=== PATIENT | male | born 1950 | race African-American/Black ===

== ENCOUNTER 2019-04-19 16:09 | Inpatient (IN) | payer MEDICARE, MEDICAID ==
[2019-04-19 17:32] LABS: #Eosinphils 0.1 thou/uL (0.0-0.7); #Lymphocytes 2.5 thou/uL (1.20-3.40); #Monocytes 1.5 thou/uL (0.11-0.59); #Neutrophils 7.5 thou/uL (1.40-6.50); %Basophils 0.4 % (0.0-1.0); %Eosinophils 1.2 % (0.0-10.0); %Lymphocytes 21.1 % (21.0-51.0); %Neutrophils 64.3 % (42.0-75.0); Hemoglobin 13.6 g/dL (14.0-18.0); Mean Corpuscular HGB CONC 32.3 g/dL (32.0-36.0); Mean Corpuscular Hemoglobin 32.3 pg (27.0-31.0); Mean Platelet Volume 7.6 fL (7.4-10.4); Platelet Count 257 thou/uL (130-400); RBC Distribution Width 15.4 % (11.5-14.5); White Blood Cell (WBC) Count 11.6 thou/uL (4.8-10.8)
[2019-04-19 18:00] LABS: ALT (SGPT) 55 U/L (8-55); AST (SGOT) 102 U/L (5-34); Albumin 3.6 g/dL (3.4-4.8); Alkaline Phosphatase 161 U/L (40-110); Anion Gap 15 mmol/L (10-20); BUN (Urea Nitrogen) 5 mg/dL (8.4-25.7); Bilirubin, Total 0.7 mg/dL (0.2-1.2); CK (CPK) 236 U/L (30-200); Calc. Creatinine Clearance 0 mL/min (70-130); Calcium 8.8 mg/dL (7.8-10.44); Carbon Dioxide 33 mmol/L (23-31); Chloride 98 mmol/L (98-107); Estimated GFR-MDRD Greater than 90; Glucose 130 mg/dL (83-110); Protein, Total 6.6 g/dL (5.8-8.1); Sodium 143 mmol/L (136-145)
--- NOTE | 2019-04-19 18:17 | CT ---
CT Brain WO Con History: Left-sided weakness Comparison: None. Findings: No acute hemorrhage or infarct. No midline shift or mass effect. Mild atrophy with ex vacuo dilatation of the extra-axial CSF spaces and ventricles. The calvarium is intact. Paranasal sinuses and mastoids are clear. Impression: No acute intracranial abnormality. Moderate chronic microvascular ischemic changes.
[2019-04-19 18:51] LABS: Bilirubin Negative (Negative); Blood, Urine Trace (Negative); Clarity Turbid (Clear); Glucose, Urine (Dipstick) Normal (Negative); Leukocyte 500 Leu/uL (Negative); Nitrite Negative (Negative); Protein, Urine (Dipstick) 70 mg/dL (Neg-Trace); Squamous Epithelial 0-3 HPF (0-3); Urobilinogen Normal mg/dL (Less than 2); WBC/HPF Greater than 50 HPF (0-3)
[2019-04-19 18:53] LABS: Bacteria/HPF 1+ HPF (None Seen)
[2019-04-19] MEDS ORDERED: Aspirin 325 MG TAB ONE (18:58)
[2019-04-19] MEDS ORDERED: Potassium Chloride 20 MEQ TAB ONE (18:58)
[2019-04-19] MEDS ORDERED: hydrALAZINE 20 MG/ML VIAL SLOW IVP PRN (19:05)
--- NOTE | 2019-04-19 22:05 | HP ---
CHIEF COMPLAINT: Left upper extremity weakness and left lower extremity weakness. HISTORY OF PRESENT ILLNESS: The patient is a 69-year-old male with unknown past medical history, who presents to the hospital for left upper extremity weakness and left lower extremity weakness. According to the patient and per ER, the patient's family brought him into the hospital. The patient is not a very good historian. He is just using foul language when you keep asking him questions. The patient did state that he recently was at [facility] in [place] and had a workup for stroke and was then discharged. I am not exactly sure what testing they did. The patient states that he does not take any medications. He states that he did have a stroke about 10 years ago. The patient states that normally he is able to walk, however, for the past 2 to 3 weeks, he has been unable to walk and has been kind of on the floor crawling around. He has not been able to go to the bathroom, so he has been having bowel incontinence in his pants. Denies any fevers or chills. PAST MEDICAL HISTORY: He has had a history of stroke in the past. PAST SURGICAL HISTORY: No surgical history listed. The patient does not recall. SOCIAL HISTORY: He smokes about half a pack a day and he also drinks alcohol, unknown how much, does not do any drugs and unknown code status. It is really difficult to communicate with this patient. REVIEW OF SYSTEMS: All negative except for the ones mentioned above in the HPI. ALLERGIES: NO KNOWN DRUG ALLERGIES. MEDICATIONS: He takes none. FAMILY HISTORY: The patient does not recall any family history of any heart disease or strokes. PHYSICAL EXAMINATION: VITAL SIGNS: Temperature of 98.0, oxygenation of 96%, heart rate of 98, blood pressure 135/76, . GENERAL: He is awake, alert, and oriented x3. Does not appear in any distress. HEENT: Normocephalic, atraumatic. No lymphadenopathy noted. The patient is very unkept. CV: S1 and S2 present. No murmurs, rubs, or gallops. Sinus. LUNGS: Clear to auscultation. No rhonchi or wheezes noted. ABDOMEN: He has a large abdominal hernia. Bowel sounds are present x2. No pain upon palpation. EXTREMITIES: He does have decreased movement to his left upper extremity. He is unable to lift his left arm up. Left lower extremity, he is able to lift the left lower extremity. His right, he is able to move his right upper and right lower. NEUROLOGIC: Cranial nerves are intact. However, he does appear to have some slurred speech. LABORATORY RESULTS: As of the following; WBCs of 11.6, hemoglobin of 13.6, hematocrit of 42.1, platelets of 257. Chemistry; sodium of 143, potassium of 3.0, BUN of five, creatinine 0.84, alkaline phosphatase is 161. CK is 236. Troponin x1 is negative. His urine appears to have some leukocyte esterase and wbc's. IMAGING DATA: He did have a CT head, which was negative. He did have a chest x-ray in the ER and it does not show any acute abnormalities. However, there is some haziness on his left lower lung area. ASSESSMENT AND PLAN: The patient is a 69-year-old male, who presents to the hospital with weakness to his left upper extremity and left lower extremity. 1. Weakness to the left upper and left lower extremity, possible stroke versus radiculopathy. I will get records from [facility] since the patient states that he recently was there last week and was discharged on Sunday and he said he had multiple testing done. I am not exactly sure what he got tested for. He does have a history of a stroke and he stated that in the past, he has had right-sided weakness from the stroke. I will get an MRI of the brain, however, I will hold off on the echocardiogram. Also, if the stroke has been out for 2 or 3 weeks, his CT would have shown something, however, the CT is negative. If there is no stroke on the MRI, we will go ahead and get a cervical spine CT or MRI for further evaluation of his left upper extremity weakness. We will also get Physical Therapy and get Neurology to see this patient. I will start him on aspirin and a statin and go from there. 2. Hypertension. The patient has been having high blood pressure for the past 2 to 3 weeks. I believe, it is safe to start him on some antihypertensives. I will also check a hemoglobin A1c and check a lipid panel in the morning. 3. Abdominal hernia, nothing to do. The patient had a bowel movement and he is able to eat without any problems. 4. Possible urinary tract infection. His urine does look appear having a wbc's and having bacteria. I will start him on prophylactic ceftriaxone and continue to monitor. 5. Hypokalemia. We will start the patient on supplements for potassium. 6. Deep venous thrombosis prophylaxis. I will put the patient on SCDs and Lovenox. Job ID: [id number]
[2019-04-20 02:39] VITALS: BMI 38.2
[2019-04-20] MEDS: cefTRIAXone\\ROCEPHIN 1 GM in Sodium Chloride 0.9% 100 ML IVPB SCH ×2 (03:13→22:45)
[2019-04-20] MEDS: Metoprolol Tartrate 25 MG TAB PO SCH ×3 (03:31→22:46)
[2019-04-20] MEDS: Atorvastatin Calcium 40 MG TAB PO SCH ×2 (03:31→22:46)
[2019-04-20 05:09] LABS: Hemoglobin A1c 6.4 % (4.0-6.0)
[2019-04-20 05:29] LABS: Cardiac Risk 3.1 (Less than 4.5)
[2019-04-20] MEDS ORDERED: Prevnar 13-Val Conj/PF 0.5 ML SYRINGE IM ONE (09:00)
[2019-04-20] MEDS ORDERED: FLU VACC TS2019-20(65YR UP)/PF 180 MCG/0.5 ML SYRINGE IM ONE (09:00)
[2019-04-20] MEDS: Aspirin 81 mg Enteric Coated Tablet PO SCH (09:00)
[2019-04-20] MEDS: Enoxaparin Sodium 40 MG/0.4 ML SYRINGE SC SCH (09:00)
--- NOTE | 2019-04-20 09:55 | MRI ---
MRI brain without contrast: 04/20/2019 COMPARISON: None HISTORY: Left upper extremity weakness TECHNIQUE: Multiplanar multisequence MR imaging of the brain without contrast FINDINGS: The diffusion weighted imaging demonstrates no evidence for acute infarction and the axial gradient echo imaging demonstrates no evidence for intracranial hemorrhage. Mild periventricular FLAIR and T2 hyperintensity suggests mild small vessel disease. Arterial flow vo ids at axial level of skull base unremarkable on the T2-weighted imaging. Imaged paranasal sinuses/mastoid air cells grossly unremarkable. Regional bone marrow signal intensity appears within normal limits. IMPRESSION: No evidence for acute infarction.
--- NOTE | 2019-04-20 10:18 | CON ---
DATE OF CONSULTATION: 04/20/2019 CONSULTING PHYSICIAN: Hospitalist Service. IMPRESSION: 1. Possible right subcortical infarct with secondary left-sided weakness. 2. Hypertension. 3. Mild diabetes. PLAN: 1. Continue aspirin and a statin. 2. Control blood pressure. 3. Carotid ultrasound. HISTORY OF PRESENT ILLNESS: Mr. Piper is a 69-year-old man with no significant past history by his report, he reportedly developed some left-sided weakness two or 3 weeks ago. He was seen at [facility] and discharged home. He reports that he did have an MRI scan and echocardiogram. He is unaware of the results. He came into the emergency room yesterday with the same complaints. Initial CT did not show anything remarkable. He had an MRI done this morning, which I reviewed and awaiting Radiology report. There was a suspicious area on diffusion imaging in the right frontal lobe. He has some periventricular white matter changes that appear chronic. He has been started on aspirin and a statin. PAST MEDICAL HISTORY: Otherwise negative. ALLERGIES: NONE. SOCIAL HISTORY: No tobacco or alcohol use. FAMILY HISTORY: Noncontributory. REVIEW OF SYSTEMS: A Ten-system review of systems is otherwise negative. PHYSICAL EXAMINATION: VITAL SIGNS: Blood pressure was 176/102, pulse 97, respirations are 14, and temperature 99.4. HEENT: Pupils are equal. Conjunctivae clear. Oropharynx clear. Cranium, normocephalic and atraumatic. NECK: Supple. No lymphadenopathy. EXTREMITIES: No cyanosis or edema. NEUROLOGIC: He is alert and cooperative. His speech is fluent, though he tends to mumble and makes it difficult to understand. Cranial nerves appear to be intact. Motor exam showed no antigravity strength proximally in the left arm. He had a fairly good collector of port strength distally. He had antigravity strength in the left leg with really minimal weakness noted. Sensation was intact to touch. No tremor or other abnormal movements were seen. Gait was not tested. LABORATORY STUDIES: Unremarkable CBC and chemistry other than A1c of 6.4. His cholesterol ratio was 3.1. MRI was reviewed. SUMMARY: A 69-year-old man with hypertension and borderline diabetes, who presents with left-sided weakness, which appears consistent with a stroke. I agree with your current management. We will await physical therapy's assessment and determine whether inpatient treatment is needed. I would go ahead and finish his workup with a carotid ultrasound. Job ID: [id number]
--- NOTE | 2019-04-20 15:44 | PDOC.HOSPP ---
- Subjective Encounter Date: 04/20/19 Encounter Time: 15:30 Subjective: pt up in bed not cooperative - Objective Vital Signs & Weight: Vital Signs (12 hours) Temp Pulse Resp BP Pulse Ox 04/20/19 15:37 98.1 F 90 18 165/91 H 94 L 04/20/19 14:30 18 162/87 H 04/20/19 11:45 98.6 F 85 18 185/91 H 92 L 04/20/19 08:00 93 L 04/20/19 07:57 98.0 F 100 18 127/90 92 L 04/20/19 04:00 99.5 F 99 14 168/94 H 92 L Weight Weight 216 lb 3.2 oz I&O: 04/19/19 04/20/19 04/21/19 06:59 06:59 06:59 Intake Total 360 Output Total 200 Balance -200 360 Result Diagrams: 04/19/19 17:23 04/19/19 17:23 Hospitalist ROS - Review of Systems Cardiovascular: denies: chest pain, palpitations, orthopnea, paroxysmal noc. dyspnea, edema, light headedness, other Gastrointestinal: denies: nausea, vomiting, abdominal pain, diarrhea, constipation, melena, hematochezia, other - Medication Medications: Active Medications Generic Name Dose Route Start Last Admin Trade Name Molina PRN Reason Stop Dose Admin Aspirin 81 mg 04/20/19 09:00 04/20/19 09:00 Ecotrin PO 81 mg DAILY HAIR Administration Atorvastatin Calcium 40 mg 04/19/19 21:00 04/20/19 03:31 Lipitor PO Not Given [facility] Enoxaparin Sodium 40 mg 04/20/19 09:00 04/20/19 09:00 Lovenox SC 40 mg 0900 HAIR Administration Ceftriaxone Sodium 1 gm/ 100 mls @ 200 mls/hr 04/19/19 20:00 04/20/19 03:13 Sodium Chloride IVPB 100 mls Q24HR HAIR Administration Metoprolol Tartrate 25 mg 04/19/19 21:00 04/20/19 09:00 Lopressor PO 25 mg BID HAIR Administration - Exam Neck: negative: supple, symmetric, no JVD, no thyromegaly, no lymphadenopathy, no carotid bruit, JVD Heart: negative: RRR, no murmur, no gallops, no rubs, normal peripheral pulses, irregular, diminshed peripheral pulses, murmur present, II/IV, III/IV Respiratory: negative: CTAB, no wheezes, no rales, no ronchi, normal chest expansion, no tachypnea, normal percussion, rales, rhonchi, tachypneic, wheezes Musculoskeletal - other findings: left upper ext weakness Hosp A/P (1) Alcohol abuse Code(s): F10.10 - ALCOHOL ABUSE, UNCOMPLICATED Status: Acute (2) HTN (hypertension) Code(s): I10 - ESSENTIAL (PRIMARY) HYPERTENSION Status: Acute (3) Hernia Code(s): K46.9 - UNSPECIFIED ABDOMINAL HERNIA WITHOUT OBSTRUCTION OR GANGRENE Status: Acute (4) Left arm weakness Code(s): R29.898 - [facility] SYMPTOMS AND SIGNS INVOLVING THE MUSCULOSKELETAL SYSTEM Status: Acute - Plan will await MRI brain results. if negative no further work up. Also will await records from [facility]. Pt refused PT.
[2019-04-20] MEDS ORDERED: Amlodipine 10 MG TAB PO SCH (16:00)
[2019-04-20] MEDS: Lisinopril 20 MG TAB PO SCH (22:46)
[2019-04-21] MEDS: Enoxaparin Sodium 40 MG/0.4 ML SYRINGE SC SCH (09:25)
[2019-04-21] MEDS: hydrALAZINE 25 MG TAB PO SCH ×2 (09:26→21:26)
[2019-04-21] MEDS: Aspirin 81 mg Enteric Coated Tablet PO SCH (09:26)
[2019-04-21] MEDS: Amlodipine 10 MG TAB PO SCH (09:26)
[2019-04-21] MEDS: Lisinopril 20 MG TAB PO SCH ×2 (09:27→21:26)
[2019-04-21] MEDS: Metoprolol Tartrate 25 MG TAB PO SCH ×2 (09:27→21:26)
--- NOTE | 2019-04-21 11:20 | MRI ---
MRI Cervical spine without contrast: HISTORY: Left arm weakness. COMPARISON: None FINDINGS: There is significant motion artifact on all pulse sequences which does degrade image quality and limi ts adequate evaluation. Images were repeated, but there is significant persistent motion on all pulse sequences. The craniocervical junction is unremarkable. No definite signal abnormalities are seen in the spinal cord allowing for motion. Paravertebral soft tissues have a normal appearance and normal signal intensity. C1-2:No significant stenosis. C2-3: There is no disc bulge or disc herniation. The central spinal canal and neural foramina are pat ent. C3-4: There is a broad-based disc osteophyte complex which results in central canal narrowing with ef facement of the anterior aspect of the spinal cord. There is mild left and probably moderate right-sided neural foraminal narrowing. C4-5: There is a broad-based disc osteophyte complex present at this level. Endplate degenerative lamin nges are seen. There is narrowing of the central spinal canal. There is mild left-sided neural foraminal narrowing. The right neural foramen is difficult to adequately evaluate, but there is proba bo moderate right-sided neural foraminal narrowing. C5-6: There is a broad-based disc osteophyte complex present. Endplate degenerative changes are noted . There is narrowing of the central spinal canal. There is suggestion of moderate bilateral neural foraminal narrowing. C6-7: There is a mild disc osteophyte complex with effacement of the ventral aspect of the thecal sac at this level. Significant motion artifact limits evaluation of each neural foramen. There is at least mild bilateral neural foraminal narrowing with possible moderate left-sided neural foraminal na rrowing. C7-T1: There is a mild disc osteophyte complex present. There is generalized mild narrowing of the ce ntral spinal canal. Neural foramina are probably patent allowing for motion, but this difficult to definitely determine. IMPRESSION: Significantly limited examination secondary to patient motion throughout the exam. Prominent disc ost eophyte complexes are seen at the C3-4, C4-5, and C5-6 levels which results in central canal and neural foraminal narrowing at these levels. The exact degree of neural foraminal narrowing is difficu lt to assess, but there probably at least moderate degrees of neural foraminal narrowing as described above.
--- NOTE | 2019-04-21 17:00 | PDOC.HOSPP ---
- Subjective Encounter Date: 04/21/19 Encounter Time: 11:15 Subjective: pt up in bed more pleasant. - Objective Vital Signs & Weight: Vital Signs (12 hours) Temp Pulse Pulse Pulse Resp BP BP 04/21/19 16:00 99.2 F 91 20 04/21/19 11:14 98.7 F 88 24 H 04/21/19 09:57 95 141/74 H 04/21/19 09:44 96 95 152/90 H 04/21/19 09:27 155/93 H 04/21/19 09:26 87 155/93 H 04/21/19 08:00 04/21/19 07:18 98.2 F 89 20 BP BP Pulse Ox 04/21/19 16:00 155/91 H 97 04/21/19 11:14 137/76 98 04/21/19 09:57 04/21/19 09:44 141/74 H 04/21/19 09:27 04/21/19 09:26 04/21/19 08:00 98 04/21/19 07:18 155/93 H 96 Weight Admit Weight 216 lb 3.2 oz Weight 216 lb 3.2 oz I&O: 04/20/19 04/21/19 04/22/19 06:59 06:59 06:59 Intake Total 480 Output Total 200 200 100 Balance -200 280 -100 Result Diagrams: 04/19/19 17:23 04/19/19 17:23 Hospitalist ROS - Review of Systems Cardiovascular: denies: chest pain, palpitations, orthopnea, paroxysmal noc. dyspnea, edema, light headedness, other Gastrointestinal: denies: nausea, vomiting, abdominal pain, diarrhea, constipation, melena, hematochezia, other - Medication Medications: Active Medications Generic Name Dose Route Start Last Admin Trade Name Freq PRN Reason Stop Dose Admin Amlodipine Besylate 10 mg 04/21/19 09:00 04/21/19 09:26 Norvasc PO 10 mg DAILY HAIR Administration Aspirin 81 mg 04/20/19 09:00 04/21/19 09:26 Ecotrin PO 81 mg DAILY HAIR Administration Atorvastatin Calcium 40 mg 04/19/19 21:00 04/20/19 22:46 Lipitor PO 40 mg HS HAIR Administration Enoxaparin Sodium 40 mg 04/20/19 09:00 04/21/19 09:25 Lovenox SC 40 mg 0900 HAIR Administration Hydralazine HCl 25 mg 04/21/19 09:00 04/21/19 09:26 Apresoline PO 25 mg BID HAIR Administration Lisinopril 20 mg 04/20/19 21:00 04/21/19 09:27 Zestril PO 20 mg BID HAIR Administration Metoprolol Tartrate 25 mg 04/19/19 21:00 04/21/19 09:27 Lopressor PO 25 mg BID HAIR Administration - Exam Heart: negative: RRR, no murmur, no gallops, no rubs, normal peripheral pulses, irregular, diminshed peripheral pulses, murmur present, II/IV, III/IV Respiratory: negative: CTAB, no wheezes, no rales, no ronchi, normal chest expansion, no tachypnea, normal percussion, rales, rhonchi, tachypneic, wheezes Gastrointestinal: soft, non-distended (has a hernia) Neurological - other findings: still is not lifting his left hand Hosp A/P (1) Left arm weakness Code(s): R29.898 - OTH SYMPTOMS AND SIGNS INVOLVING THE MUSCULOSKELETAL SYSTEM Status: Acute (2) Hernia Code(s): K46.9 - UNSPECIFIED ABDOMINAL HERNIA WITHOUT OBSTRUCTION OR GANGRENE Status: Acute (3) HTN (hypertension) Code(s): I10 - ESSENTIAL (PRIMARY) HYPERTENSION Status: Acute (4) Alcohol abuse Code(s): F10.10 - ALCOHOL ABUSE, UNCOMPLICATED Status: Acute - Plan Did review records from [facility] and he was admitted for n/v abd pain. He was sent home on abx for uti. He had left arm weakness and it is not new. his shoulder xray was normal. I also did a mri cervical he does have some stenosis and when he is ambulated he does use both hand on his walker. i will start him on toradol to see if this helps. i will offer him rehab if her refuses will discharge him home.
[2019-04-21] MEDS: Ketorolac Tromethamine 30 MG/ML VIAL IVP SCH (18:28)
[2019-04-21] MEDS: Atorvastatin Calcium 40 MG TAB PO SCH (21:26)
[2019-04-22] MEDS: Ketorolac Tromethamine 30 MG/ML VIAL IVP SCH ×3 (01:06→12:01)
[2019-04-22] MEDS: Enoxaparin Sodium 40 MG/0.4 ML SYRINGE SC SCH (08:30)
[2019-04-22] MEDS: Aspirin 81 mg Enteric Coated Tablet PO SCH (08:30)
[2019-04-22] MEDS: Amlodipine 10 MG TAB PO SCH (08:31)
[2019-04-22] MEDS: Lisinopril 20 MG TAB PO SCH ×2 (08:31→21:25)
[2019-04-22] MEDS: hydrALAZINE 25 MG TAB PO SCH ×2 (08:31→21:25)
[2019-04-22] MEDS: Metoprolol Tartrate 25 MG TAB PO SCH ×2 (08:31→21:25)
--- NOTE | 2019-04-22 11:25 | CON ---
DATE OF CONSULTATION: This is Patrick Lees PA-C dictating a report for Sergey King MD. HISTORY OF PRESENT ILLNESS: We were asked by the hospitalist to see patient. The patient seen at [facility] few weeks ago after he had developed some left- sided weakness. Multiple imaging scans were completed. He had a left shoulder scan. He was discharged from [facility] and showed up to our hospital on 04/20. He is seen by the hospitalist, Dr. Charles, again had another fair amount of left-sided weakness, mostly in his arm. Moved his shoulder around. There is not really any complaint of any pain, but he does have a little biceps and wrist extensor weakness. Speaking with the patient, since this initial ailments started, he has slowly gotten better. 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 I did not appreciate gait while he was in the room, but at the point when I saw him, he has no left upper extremity pain. He denies any injury. States he just fell asleep and woke up this way. PAST MEDICAL HISTORY: Positive for stroke. SURGERIES: None that he can recall. SOCIAL HISTORY: Continues to smoke. Also, drinks alcohol. No drugs. The patient is somewhat of a poor historian, I believe by choice. ALLERGIES: NO KNOWN DRUG ALLERGIES. DENIES ANY PRESCRIPTION DRUGS OR [id number] DRUGS. FAMILY HISTORY: For this incidence is noncontributory. REVIEW OF SYSTEMS: The patient is unhappy, spirits down. Otherwise, denies any chest pain, shortness of breath. Extremities are not hurting right now, but he feels like he has some weakness more so on the left upper extremity. Rest of review of systems negative. PHYSICAL EXAMINATION: GENERAL: Well-nourished, well-developed male, awake, alert, in no acute distress, resting on the gurney in room 215. He is answering questions appropriately. HEENT: Face is symmetric. Tongue midline normocephalic. NECK: Supple. Trachea midline. EXTREMITIES: Upper extremities; equal size, shape, and symmetry. Normal bulk and tone. Strength testing; he is weak in his left biceps and wrist extensors compared to the right. Otherwise, strengths were equal as are sensations. I did not appreciate any brisk reflexes in the upper extremities or in the lower extremities. Sensation in the upper and lower extremities are intact. ASSESSMENT: Left upper extremity weakness. PLAN: I spoke with Hospitalist and let them know that I cannot appreciate any pain that the patient may be having with doing range of motion, active, passive, and strength testing on the left upper extremity. He does have some pathology in his neck, which may be causing some left arm pain. He also could have a Sunday night palsy from sleeping on that arm that is slowly resolving. If it continues, I think, he may be discharged on outpatient basis and may need to follow up with either Neurosurgery or Neurology, and may need an EMG nerve conduction study. I have discussed this with Dr. King and If there are further issues or the shoulder starts to hurt, we can reevaluate it at that time. He can follow up with us on a p.r.n. basis. Job ID: [id number] MTDD
[2019-04-22] MEDS: Atorvastatin Calcium 40 MG TAB PO SCH (21:25)
--- NOTE | 2019-04-23 07:35 | PDOC.HOSPP ---
- Subjective Encounter Date: 04/22/19 Encounter Time: 11:30 Subjective: pt up in bed left arm weakness - Objective Vital Signs & Weight: Vital Signs (12 hours) Temp Pulse Resp BP Pulse Ox 04/23/19 04:00 98.8 F 94 18 155/77 H 96 04/22/19 23:42 98.7 F 86 18 134/83 96 04/22/19 21:25 93 04/22/19 20:00 97 Weight Admit Weight 216 lb 3.2 oz Weight 216 lb 3.2 oz I&O: 04/22/19 04/23/19 04/24/19 06:59 06:59 06:59 Intake Total 860 750 Output Total 550 Balance 310 750 Result Diagrams: 04/19/19 17:23 04/19/19 17:23 Hospitalist ROS - Review of Systems Cardiovascular: denies: chest pain, palpitations, orthopnea, paroxysmal noc. dyspnea, edema, light headedness, other Gastrointestinal: denies: nausea, vomiting, abdominal pain, diarrhea, constipation, melena, hematochezia, other Genitourinary: denies: dysuria, frequency, incontinence, hematuria, retention, other - Medication Medications: Active Medications Generic Name Dose Route Start Last Admin Trade Name Freq PRN Reason Stop Dose Admin Amlodipine Besylate 10 mg 04/21/19 09:00 04/22/19 08:31 Norvasc PO 10 mg DAILY HIAR Administration Aspirin 81 mg 04/20/19 09:00 04/22/19 08:30 Ecotrin PO 81 mg DAILY HAIR Administration Atorvastatin Calcium 40 mg 04/19/19 21:00 04/22/19 21:25 Lipitor PO 40 mg HS HAIR Administration Enoxaparin Sodium 40 mg 04/20/19 09:00 04/22/19 08:30 Lovenox SC 40 mg 0900 HAIR Administration Hydralazine HCl 25 mg 04/21/19 09:00 04/22/19 21:25 Apresoline PO 25 mg BID HAIR Administration Lisinopril 20 mg 04/20/19 21:00 04/22/19 21:25 Zestril PO 20 mg BID HAIR Administration Metoprolol Tartrate 25 mg 04/19/19 21:00 04/22/19 21:25 Lopressor PO 25 mg BID HAIR Administration Sodium Chloride 10 ml 04/19/19 19:05 04/22/19 08:31 Flush - Normal Saline IVF 10 ml PRN PRN Administration Saline Flush - Exam Heart: negative: RRR, no murmur, no gallops, no rubs, normal peripheral pulses, irregular, diminshed peripheral pulses, murmur present, II/IV, III/IV Respiratory: negative: CTAB, no wheezes, no rales, no ronchi, normal chest expansion, no tachypnea, normal percussion, rales, rhonchi, tachypneic, wheezes Gastrointestinal: negative: soft, non-tender, non-distended, normal bowel sounds , no palpable masses, no hepatomegaly, no splenomegaly, no bruit, no guarding, no rigidity, tender to palpation, distended, diminished bowl sounds, voluntary guarding Hosp A/P (1) Left arm weakness Code(s): R29.898 - [facility] SYMPTOMS AND SIGNS INVOLVING THE MUSCULOSKELETAL SYSTEM Status: Acute (2) Hernia Code(s): K46.9 - UNSPECIFIED ABDOMINAL HERNIA WITHOUT OBSTRUCTION OR GANGRENE Status: Acute (3) HTN (hypertension) Code(s): I10 - ESSENTIAL (PRIMARY) HYPERTENSION Status: Acute (4) Alcohol abuse Code(s): F10.10 - ALCOHOL ABUSE, UNCOMPLICATED Status: Acute - Plan Did review records from [facility] and he was admitted for n/v abd pain. He was sent home on abx for uti. He had left arm weakness and it is not new. his shoulder xray was normal. I also did a mri cervical he does have some stenosis and when he is ambulated he does use both hand on his walker. i will start him on toradol to see if this helps. i will offer him rehab if her refuses will discharge him home. 04/22 will get ortho to see pt. He has been having this left arm weakness for a very long time. spoke with pt's sister who will convince pt to go to rehab.
[2019-04-23] MEDS: Amlodipine 10 MG TAB PO SCH (09:03)
[2019-04-23] MEDS: Metoprolol Tartrate 25 MG TAB PO SCH (09:03)
[2019-04-23] MEDS: Lisinopril 20 MG TAB PO SCH (09:03)
[2019-04-23] MEDS: Enoxaparin Sodium 40 MG/0.4 ML SYRINGE SC SCH (09:03)
[2019-04-23] MEDS: Aspirin 81 mg Enteric Coated Tablet PO SCH (09:03)
[2019-04-23] MEDS: hydrALAZINE 25 MG TAB PO SCH (09:03)
[2019-04-23 11:55] LABS: Anion Gap 11 mmol/L (10-20); BUN (Urea Nitrogen) 11 mg/dL (8.4-25.7); Calc. Creatinine Clearance 120 mL/min (70-130); Calcium 9.2 mg/dL (7.8-10.44); Carbon Dioxide 30 mmol/L (23-31); Chloride 102 mmol/L (98-107); Estimated GFR-MDRD Greater than 90; Glucose 97 mg/dL (83-110); Potassium 3.3 mmol/L (3.5-5.1); Sodium 140 mmol/L (136-145)
--- NOTE | 2019-04-23 16:00 | PQF ---
KEREN REYES SHAYLA CHRISTOPHER [id number] [facility] [place] [facility] [place] [id number] CLINICAL DOCUMENTATION IMPROVEMENT CLARIFICATION FORM: ICD-10 Updated PLEASE DO AN ADDENDUM TO THE PROGRESS NOTE WITH ANY DOCUMENTATION UPDATES OR ADDITIONS AND CARRY THROUGH TO DC SUMMARY. THANK YOU. DATE: 04/23/2019 ATTN: DR. Mark PARRA Please exercise your independent, professional judgment in responding to the clarification form. Clinical indicators are provided on the bottom of this form for your review. Please check appropriate box(s): [ ] UTI Ruled In [ x ] UTI Ruled Out [ ] Other diagnosis [ ] Unable to determine In addition, please specify: Present on Admission (POA): [ ] Yes [ ] No [ x ] Unable to determine For continuity of documentation, please document condition throughout progress notes and discharge summary. Thank You. CLINICAL INDICATORS - SIGNS / SYMPTOMS / LABS / RESULTS AND LOCATION IN MR 04/19 URINE BLOOD WBC 11.6 URINE BACTERIA 1+ WBC GREATER THAN 50 LEUKOCYTE ESTERASE 500 A BLOOD TRACE A TURBID A 04/19 H&P (FIDEL) HE HAS NOT BEEN ABLE TO GO TO THE BATHROOM, ASSESSMENT: 4). POSSIBLE URINARY TRACT INFECTION. " HIS URINE DOES LOOK APPEAR HAVING A WBC'S AND HAVING BACTERIA." 04/21 PN (FIDEL) PLAN: DID REVIEW RECORDS FROM [facility] AND HE WAS ADMITTED FOR N/V ABD PAIN/ HE WAS SENT HOME ON ABX FOR UTI. NO FURTHER MENTION TO DATE OF UTI RISK: RECENT HOSPITALIZATION WITH TX OF UTI, ADVANCED AGE (69), (H&P, PN/ EDWARDIMROSLYN) , 04/21 TREATMENTS: URINE CULTURE 04/19 ROCEPHIN IV (04/19-04/20) THANK YOU! WEST (This form is maintained as a part of the permanent medical record) 2014 [employer] All Rights Reserved VIVIANA [email or web address] [phone] [email or web address]
[2019-04-23 16:15] VITALS: BP 126/74; TEMP 98
--- NOTE | 2019-04-23 18:52 | DIS ---
DATE OF ADMISSION: 04/19/2019 DATE OF DISCHARGE: 04/23/2019 DISCHARGE DIAGNOSES: 1. Left upper arm weakness, which is chronic in nature. 2. Abdominal hernia. 3. Hypertension. 4. Hypokalemia. HOSPITAL COURSE: The patient is a 69-year-old male who presents to the hospital with left arm weakness which has been going on. Actually, the patient's family found him on the floor, crawling around, so they brought him into the hospital for further evaluation. The patient recently was discharged from the hospital at [facility] about a week prior to this. The patient initially was unable to provide me much of a history. He just kept saying he does not know, he does not know. We went ahead and did an MRI of his brain which did not indicate any acute strokes. At this time, the stroke workup was stopped. I even asked the patient he had any falls, the patient denies any falls, however, that is unlikely. We also went ahead and did a cervical MRI, which was not very helpful since the patient had significant amount of motion movement. He did have some degree, at least moderate degree of neuroforaminal narrowing. The patient was also evaluated by Orthopedics. He had no pain on active and passive range of motion. The patient does have a history of drinking per his records in [facility]. He will need therapy. I have spoken with the patient's sister who recommended the patient to go to rehabilitation. 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 The patient did have this present in his previous hospitalization at [facility] also. DISCHARGE MEDICATIONS: Will be: 1. Amlodipine 10 mg daily. 2. Aspirin 81 mg daily. 3. Atorvastatin 20 mg at bedtime. 4. Zestril 20 mg b.i.d. 5. Metoprolol 25 mg b.i.d. 6. Hydralazine 25 mg b.i.d. I did ask the patient in the past if he has had a stroke. He stated he did, however, the MRI did not prove that. The patient does not take any medications at home. PHYSICAL EXAMINATION: VITAL SIGNS: Temperature 98.1, pulse 87, respirations 20, 96% on room air, blood pressure 129/77. GENERAL: He is awake, alert, oriented x3. Does not appear in any distress. CV: S1 and S2 present. No murmurs, rubs, or gallops. ABDOMEN: Soft and nontender. Bowel sounds are present x2. He does have abdominal hernia. However, he has been eating and drinking and having bowel movements. I will discharge him to a rehab facility and he will follow up with primary care doctor as outpatient. He will also need Neurology as outpatient for possibly an EEG. Job ID: [id number]
--- NOTE | 2019-04-24 22:32 | PQF ---
KEREN REYES SHAYLA [id number] [facility] [place] [id number] CLINICAL DOCUMENTATION CLARIFICATION FORM: POST DISCHARGE Addendum to original discharge summary date: ____ Late entry note date: __ DATE: 04/24/19 ATTN: Shayla Briceño Please exercise your independent, professional judgment in responding to the clarification form. Clinical indicators are provided on the bottom of this form for your review In your clinical opinion based on clinical findings below, can you please identify the etiology of Weakness if due to: Please check appropriate box(s): [ ] Cervical Stenosis [ ] Hypokalemia [ ] Other condition, please specify; [x ] Unable to determine In addition, please specify: Present on Admission (POA): [ x] Yes [ ] No [ ] Unable to determine For continuity of documentation, please document condition throughout progress notes and discharge summary. Thank You. CLINICAL INDICATORS - SIGNS / SYMPTOMS / LABS H&P p1 04/19 Dr Taylor presents to the hospital for left upper extremity weakness and left lower extremity weakness H&P p1 04/19 Dr Taylor Had history of stroke in the past Hospitalist PN p4 04/21 I also did a MRI Cervical he does have some stenosis RISK FACTORS H&P p1 04/19 [id number] H&P p2 04/19 Hypertension H&P p3 04/19 Hypokalemia TREATMENTS: H&P p2 04/19 For Brain MRI H&P p2 04/19 Get Physical Therapy H&P p2 04/19 Start on Aspirin and Statin H&P p3 04/19 Supplements for Potassium Neurology Consult 04/20 Je Torres Orthopedic surgery Consult 04/22 Sergey Ferrell (This form is maintained as a part of the permanent medical record) 2014 [employer]. All Rights Reserved Maria Esther [email or web address] [not provided] MTDD
== END 2019-04-23 19:26 | DRG 948 ==
LOC: ERS 16:09 → 2SE 22:21
PROVIDERS: ADMIT Emergency Medicine; ATTEND Emergency Medicine
PROC: 3E0234Z Introduction of Serum, Toxoid and Vaccine into Muscle, Percutaneous Approach (ICD-10-PCS; principal; 2019-04-20)
PROC: 3E02340 Introduction of Influenza Vaccine into Muscle, Percutaneous Approach (ICD-10-PCS; 2019-04-20)
DX: R53.1 Weakness (principal); K46.9 Unspecified abdominal hernia without obstruction or gangrene; I10 Essential (primary) hypertension; E87.6 Hypokalemia; E11.9 Type 2 diabetes mellitus without complications; F10.10 Alcohol abuse, uncomplicated; M48.02 Spinal stenosis, cervical region; F17.200 Nicotine dependence, unspecified, uncomplicated; Z86.73 Personal history of transient ischemic attack (TIA), and cerebral infarction without residual deficits; Z23 Encounter for immunization
CPT/HCPCS: 36415; 70450; 70551; 71045; 72141; 80048; 80053; 80061; 81003; 81015; 82550; 83036; 83605; 84484; 85025; 90471; 90662; 90670; 93005; 96360; 96361; G0008; G0009; J0696; J1650; J1885; J3490

== ENCOUNTER 2019-05-19 13:50 | Emergency (ER) | payer MEDICARE, MEDICAID ==
[2019-05-19 14:32] LABS: #Basophils 0.1 thou/uL (0.0-0.2); #Eosinphils 0.1 thou/uL (0.0-0.7); #Lymphocytes 3.6 thou/uL (1.20-3.40); #Monocytes 0.7 thou/uL (0.11-0.59); #Neutrophils 7.8 thou/uL (1.40-6.50); %Basophils 0.9 % (0.0-1.0); %Eosinophils 0.7 % (0.0-10.0); %Lymphocytes 29.2 % (21.0-51.0); %Monocytes 5.6 % (0.0-10.0); %Neutrophils 63.5 % (42.0-75.0); Hemoglobin 12.7 g/dL (14.0-18.0); Mean Corpuscular Hemoglobin 31.8 pg (27.0-31.0); Mean Corpuscular Volume 96.3 fL (78.0-98.0); Mean Platelet Volume 6.8 fL (7.4-10.4); Platelet Count 167 thou/uL (130-400); RBC Distribution Width 14.8 % (11.5-14.5); Red Blood Cell (RBC) Count 3.99 mill/uL (4.70-6.10); White Blood Cell (WBC) Count 12.2 thou/uL (4.8-10.8)
--- NOTE | 2019-05-19 14:44 | RAD ---
Exam: Chest one view HISTORY:Leukocytosis Comparison: 04/29/2019 FINDINGS: Lungs: No masses or consolidation. Cardiac silhouette:Accentuated by technique Pulmonary vessels: Normal Pleural Spaces: Clear Pneumothorax: None Osseous abnormalities: None of acuity. IMPRESSION: No focal consolidation. Stable prominence of cardiac silhouette.
[2019-05-19 14:55] LABS: ALT (SGPT) 32 U/L (8-55); AST (SGOT) 54 U/L (5-34); Acetaminophen Less than 6.0 mcg/mL (10.0-30.0); Albumin 3.9 g/dL (3.4-4.8); Alcohol 230 mg/dL (Less than 10); Alkaline Phosphatase 200 U/L (40-110); Anion Gap 26 mmol/L (10-20); BUN (Urea Nitrogen) 21 mg/dL (8.4-25.7); Bilirubin, Total 0.8 mg/dL (0.2-1.2); CK (CPK) 277 U/L (30-200); Calc. Creatinine Clearance 0 mL/min (70-130); Calcium 8.2 mg/dL (7.8-10.44); Carbon Dioxide 17 mmol/L (23-31); Chloride 101 mmol/L (98-107); Estimated GFR-MDRD Greater than 90; Globulin 2.8 g/dL (2.4-3.5); Glucose 77 mg/dL (83-110); Protein, Total 6.7 g/dL (5.8-8.1); Salicylate Less than 8.0 mg/dL (15.0-30.0); Sodium 139 mmol/L (136-145)
[2019-05-19 15:21] LABS: Bilirubin Negative (Negative); Blood, Urine Negative (Negative); Clarity Clear (Clear); Glucose, Urine (Dipstick) Normal (Negative); Leukocyte 75 Leu/uL (Negative); Nitrite Negative (Negative); Protein, Urine (Dipstick) 20 mg/dL (Neg-Trace); RBC/HPF None Seen HPF (0-3); Squamous Epithelial 0-3 HPF (0-3); Urobilinogen Normal mg/dL (Less than 2); WBC/HPF 0-3 HPF (0-3)
[2019-05-19 15:29] LABS: Bacteria/HPF None Seen HPF (None Seen)
== END 2019-05-19 19:43 | disposition home or self-care (01) ==
LOC: ERS 13:50
DX: F10.129 Alcohol abuse with intoxication, unspecified (principal); F17.210 Nicotine dependence, cigarettes, uncomplicated; Y90.7 Blood alcohol level of 200-239 mg/100 ml
CPT/HCPCS: 36415; 71045; 80053; 80307; 81003; 81015; 82550; 84484; 85025; 93005

== ENCOUNTER 2019-05-20 10:35 | Inpatient (IN) | payer MEDICARE, MEDICAID ==
[2019-05-20] MEDS ORDERED: Sodium Chloride 0.9% 1,000 ML IV SCH ×3 (11:15→15:45)
[2019-05-20 11:19] LABS: Bacteria/HPF None Seen HPF (None Seen); Bilirubin Negative (Negative); Blood, Urine Trace (Negative); Clarity Clear (Clear); Glucose, Urine (Dipstick) Normal (Negative); Leukocyte 75 Leu/uL (Negative); Nitrite Negative (Negative); Protein, Urine (Dipstick) 100 mg/dL (Neg-Trace); RBC/HPF 0-3 HPF (0-3); Squamous Epithelial 0-3 HPF (0-3)
[2019-05-20 11:29] LABS: #Lymphocytes 0.8 thou/uL (1.20-3.40); #Monocytes 0.7 thou/uL (0.11-0.59); #Neutrophils 10.9 thou/uL (1.40-6.50); %Basophils 0.1 % (0.0-1.0); %Eosinophils 0.2 % (0.0-10.0); %Lymphocytes 6.2 % (21.0-51.0); %Monocytes 5.7 % (0.0-10.0); %Neutrophils 87.7 % (42.0-75.0); Hemoglobin 12.5 g/dL (14.0-18.0); Mean Corpuscular HGB CONC 33.2 g/dL (32.0-36.0); Mean Corpuscular Volume 96.3 fL (78.0-98.0); Mean Platelet Volume 7.2 fL (7.4-10.4); Platelet Count 155 thou/uL (130-400); RBC Distribution Width 14.9 % (11.5-14.5); White Blood Cell (WBC) Count 12.4 thou/uL (4.8-10.8)
[2019-05-20 11:41] LABS: Phosphorus 2.6 mg/dL (2.3-4.7)
[2019-05-20 11:50] LABS: ALT (SGPT) 34 U/L (8-55); AST (SGOT) 54 U/L (5-34); Albumin 4.1 g/dL (3.4-4.8); Alkaline Phosphatase 200 U/L (40-110); Anion Gap 30 mmol/L (10-20); BUN (Urea Nitrogen) 17 mg/dL (8.4-25.7); Bilirubin, Total 1.1 mg/dL (0.2-1.2); Calc. Creatinine Clearance 0 mL/min (70-130); Calcium 8.5 mg/dL (7.8-10.44); Carbon Dioxide 15 mmol/L (23-31); Chloride 98 mmol/L (98-107); Estimated GFR-MDRD 84; Globulin 2.9 g/dL (2.4-3.5); Glucose 111 mg/dL (83-110); Lipase 114 U/L (8-78); Magnesium 1.3 mg/dL (1.6-2.6); Potassium 4.9 mmol/L (3.5-5.1); Sodium 138 mmol/L (136-145)
--- NOTE | 2019-05-20 11:55 | RAD ---
Chest one view HISTORY: Abdominal and chest pain. Hemoptysis. COMPARISON: 05/19/2019. FINDINGS: Cardiac silhouette remains magnified and upper limits of normal in size. Pulmonary vasculat ure now upper limits of normal. Mediastinum is midline. Right hemidiaphragm remains slightly elevated. No lobar consolidation or evidence of pneumothorax. IMPRESSION: Borderline pulmonary vascular congestion is new. Borderline cardiomegaly is stable.
[2019-05-20] MEDS ORDERED: Pantoprazole 40 MG VIAL IVP SCH (12:00)
[2019-05-20 12:27] LABS: Base Excess-Venous -8.8 mmol/L (-2.0 to 3.0); Bicarbonate (HCO3v) 16.6 mmol/L (22.0-28.0); CO2 Tension (PvCO2) 33.6 mmHg (40.0-50.0); Calcium, Ionized 1.01 mmol/L (See Comments:); Chloride 103 mmol/L (98-107); Hemoglobin - Calc 13.4 g/dL (14.0-18.0); Potassium 4.9 mmol/L (3.5-5.1); Sodium 134 mmol/L (138-145); T. Carbon Dioxide 17.6 mmol/L (22.0-28.0); vO2 Saturation-calc 98.7 % (60.0-85.0)
[2019-05-20] MEDS ORDERED: Magnesium 2 GM/50 ML BAG (IN WATER) ONE (12:38)
[2019-05-20] MEDS ORDERED: Ondansetron ODT 4 MG TAB SL PRN (14:18)
[2019-05-20] MEDS ORDERED: Ondansetron PF 4 MG/2 ML Vial IVP PRN (14:18)
[2019-05-20] MEDS ORDERED: Acetaminophen 325 MG TAB PO PRN (14:18)
[2019-05-20 14:29] VITALS: BMI 36.5
[2019-05-20] MEDS: Multivitamins, Adult 10 ML, Folic Acid 1 MG, Thiamine HCl 100 MG in Dextrose 5 %-0.45 %... IV SCH (14:39)
--- NOTE | 2019-05-20 15:31 | PDOC.HHP ---
Hospitalist HPI - History of Present Illness "I don't feel well" History of Present Illness: Mr. Piper is 69 y/o male with h/o hypertension who presented with generalized weakness. Patient is a poor historian. He however was able to disclose that he has had no po intake for 4-5 days due nausea and vomiting. Today, he was observed to have hemetemesis in the ER. He also reported tarry black stool since this morning. There is no family at bedside. He was reportedly seen here in the ED yesterday for same complaints. 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 Extremities: no cyanosis Skin - other findings: Poor skin tugor. Musculoskeletal: generalized weakness, diffuse muscle atrophy Psychiatric: oriented to person, somnolent Hospitalist Results - Labs Result Diagrams: 05/20/19 11:14 05/20/19 11:12 Lab results: WBC 12.4 thou/uL (4.8-10.8) H 05/20/19 11:14 Hgb 12.5 g/dL (14.0-18.0) L 05/20/19 11:14 Hct 37.5 % (42.0-52.0) L 05/20/19 11:14 MCV 96.3 fL (78.0-98.0) 05/20/19 11:14 Plt Count 155 thou/uL (130-400) 05/20/19 11:14 Neutrophils % 87.7 % (42.0-75.0) H 05/20/19 11:14 VBG pCO2 33.6 mmHg (40.0-50.0) L 05/20/19 12:27 VBG pO2 130.7 mmHg (35.0-45.0) H 05/20/19 12:27 Sodium 138 mmol/L (136-145) 05/20/19 11:12 Potassium 4.9 mmol/L (3.5-5.1) 05/20/19 11:12 Chloride 98 mmol/L (98-107) 05/20/19 11:12 Carbon Dioxide 15 mmol/L (23-31) L 05/20/19 11:12 BUN 17 mg/dL (8.4-25.7) 05/20/19 11:12 Creatinine 1.05 mg/dL (0.7-1.3) 05/20/19 11:12 Glucose 111 mg/dL (83-110) H 05/20/19 11:12 Calcium 8.5 mg/dL (7.8-10.44) 05/20/19 11:12 Total Bilirubin 1.1 mg/dL (0.2-1.2) 05/20/19 11:12 AST 54 U/L (5-34) H 05/20/19 11:12 ALT 34 U/L (8-55) 05/20/19 11:12 Alkaline Phosphatase 200 U/L (40-110) H 05/20/19 11:12 Ammonia 44 umol/L (18-72) 05/20/19 12:01 Serum Total Protein 7.0 g/dL (5.8-8.1) 05/20/19 11:12 Albumin 4.1 g/dL (3.4-4.8) 05/20/19 11:12 Lipase 114 U/L (8-78) H 05/20/19 11:12 Urine Ketones Greater than 150 mg/dL (Negative) A 05/20/19 11:05 Urine Blood Trace (Negative) A 05/20/19 11:05 Urine Nitrite Negative (Negative) 05/20/19 11:05 Ur Leukocyte Esterase 75 Oscar/uL (Negative) A 05/20/19 11:05 Urine RBC 0-3 HPF (0-3) 05/20/19 11:05 Urine WBC 4-6 HPF (0-3) A 05/20/19 11:05 Ur Squamous Epith Cells 0-3 HPF (0-3) 05/20/19 11:05 Urine Bacteria None Seen HPF (None Seen) 05/20/19 11:05 - Radiology Interpretation CT scan - abdomen Status: pending Hospitalist H&P A/P - Plan Plan: Mr. Piper is 69 y/o male pw generalized weakness, hemetemesis and melena. # Acute GI bleed- probably upper. witnessed hemetemesis in ER. Rule out neli padgett, gastritis, gastric ulcer -HD stable. -H&H is at baseline, perhaps hemoconcentrated. Trend with hydration -typed and screened -IV protonix; maintain npo for now. -CT abdomen ordered. -GI consulted. #Ketoacidosis- starvation ketosis. H/o prediabetes, hgba1c last month at 6.3%. current BG at 111 -IV hydration. Replace electrolytes -Multivitamin -trend BMP. #AGMA- ketosis. Check lactic acid. -IV hydration. Trend BMP -Treat underlying etiology #Hypomag-replace #Elevated lipase- not pancreatitis. due to vomiting. -trend in a.m #Severe hypovolemia- UA is concentrated -IV hydration -watch for refeeding syndrome once po intake is reinitiated. #Msc- consider CM consult for possible SNF or LT placement. Maybe unable to care for self at home. DVT ppx- SCD Patient will be full code by default pending family availability and /or mental state improvement.
[2019-05-20] MEDS: Pantoprazole 80 MG, Admixture Fee 1 EACH in Sodium Chloride 0.9% 100 ML IVPB SCH (16:28)
[2019-05-20 16:37] LABS: Hemoglobin 12.1 g/dL (14.0-18.0)
[2019-05-20] MEDS: Sodium Chloride 0.9% 1,000 ML IV SCH ×2 (16:49→23:29)
[2019-05-20 16:52] LABS: Actual Bicarbonate (HCO3v) 12 mEq/L (22-28); Base Excess -10.9 mEq/L (-2.0 to +3.0); Calcium, Ionized 1.04 mmol/L (1.16-1.32); Chloride (ABG LAB) 99 mmol/L (98-106); Hemoglobin (Hb) 12.9 g/dL (12.6-17.4); Potassium - ABG Lab 4.48 mmol/L (3.70-5.30); Sodium 138.6 mmol/L (133-146); pH (venous) 7.36 (7.32-7.43)
[2019-05-20 16:59] LABS: Anion Gap 26 mmol/L (10-20); BUN (Urea Nitrogen) 14 mg/dL (8.4-25.7); Calc. Creatinine Clearance 83 mL/min (70-130); Calcium 8.4 mg/dL (7.8-10.44); Carbon Dioxide 14 mmol/L (23-31); Chloride 101 mmol/L (98-107); Estimated GFR-MDRD 79; Glucose 113 mg/dL (83-110); Potassium 4.5 mmol/L (3.5-5.1); Sodium 136 mmol/L (136-145)
--- NOTE | 2019-05-20 21:33 | CT ---
CT ABDOMEN AND PELVIS WITH IV CONTRAST: 05/20/19 HISTORY: GI bleed. Black stools and vomiting blood. COMPARISON: None. FINDINGS: There is evidence of bibasilar atelectasis. There are a few tiny less than 4 mm nodular densities see n at the right lung base which on coronal imaging appear to represent tiny calcified granulomata. The liver demonstrates diminished attenuation most likely compatible with diffuse fatty infiltration. The liver is enlarged in craniocaudal dimensions measuring approximately 20 cm. The portal veins demonstrate enhancement and appear patent. The spleen, pancreas, and bilateral kidneys demonstrate a normal CT appearance. There is a right adrenal nodule measuring 2.6 cm with thickening of the left adrenal gland and probab le small nodule involving the inferior aspect of the lateral limb of the left adrenal gland. These ad renal nodules are unable to be further characterized on this post enhanced CT exam. There is a few mildly prominent periportal lymph nodes present with largest lymph node likely represe nting a conglomeration of lymph nodes measuring approximately 2.2 cm in short axis. Mildly prominent precaval lymph node is also seen adjacent to the region of the pancreatic head. There is evidence of a ventral abdominal wall hernia in the mid abdomen in a supraumbilical location. The hernia defect measures approximately 2.2 cm, but there is a small amount of edema and stranding seen within the hernia. There is mild edema and stranding seen within the mesentery which is overall nonspecific. No bowel wa ll thickening is seen. The loops of small bowel are normal in caliber. The appendix is visualized and normal in caliber. Vascular calcifications are seen in the abdominal aorta and involving the iliac arteries. Dense calcifications are seen in the prostate gland. Multilevel degenerative changes are seen throughout the thoracic and lumbar spine with prominent oste ophytes at multiple levels and calcification of the anterior longitudinal ligament of the lower thora cic and upper lumbar spine. There is mild bilateral hip osteoarthritis present with degenerative changes at the pubic symphysis. IMPRESSION: 1. Ventral abdominal wall fat containing hernia with small amount of fluid and stranding. The st randing could be related to inflammatory changes or possibly mild edema within the herniated fat. 2. Bilateral adrenal nodules and thickening of the left adrenal gland. These adrenal nodules can not be characterized on this exam, and follow-up CT abdomen following the adrenal mass protocol with non-contrast images is recommended. 3. Hepatomegaly with diffuse fatty infiltration of the liver. 4. Mild generalized nonspecific edema and stranding within the mesentery of the abdomen. There i s no bowel wall thickening. 5. Small lipoma involving the left iliacus muscle. 6. Vascular calcifications. POS: [facility]
[2019-05-20 22:12] LABS: Anion Gap 20 mmol/L (10-20); BUN (Urea Nitrogen) 11 mg/dL (8.4-25.7); Calc. Creatinine Clearance 82 mL/min (70-130); Calcium 8.2 mg/dL (7.8-10.44); Carbon Dioxide 17 mmol/L (23-31); Chloride 104 mmol/L (98-107); Estimated GFR-MDRD 78; Glucose 103 mg/dL (83-110); Magnesium 1.5 mg/dL (1.6-2.6); Potassium 5.1 mmol/L (3.5-5.1); Sodium 136 mmol/L (136-145)
--- NOTE | 2019-05-20 23:21 | CON ---
DATE OF CONSULTATION: 05/20/2019 CHIEF COMPLAINT: Nausea and vomiting. HISTORY OF PRESENT ILLNESS: Mr. Piper is a 69-year-old man, who presented to the emergency room with nausea and vomiting. While he was in the ER, he apparently vomited some degree of bright red blood. He has had no abdominal pain associated with this. No ongoing bloody vomiting. He does report he has had some liquidy stools few times per day over the last few days. He drinks half a pint or so of gin daily. He has not been eating much lately. Overall, he is a somewhat poor historian. PAST MEDICAL HISTORY: Hypertension, hyperlipidemia. PAST SURGICAL HISTORY: Negative. FAMILY HISTORY: Negative for GI malignancy. SOCIAL HISTORY: He drinks half a pint or more of gin daily. He smokes half a pack a day. Denies drug use. ALLERGIES: NO KNOWN DRUG ALLERGIES. MEDICATIONS: Prior to admission: 1. Atorvastatin. 2. Hydralazine. 3. Lisinopril. 4. Metoprolol. REVIEW OF SYSTEMS: Negative x10 systems reviewed, except as stated in the history of present illness. PHYSICAL EXAMINATION: VITAL SIGNS: Temperature 98.4, pulse 101, blood pressure 138/63. GENERAL: He is awake and responsive. He is oriented to his name and to the place and to the year. He is in no acute distress. HEENT: His eyes have no scleral icterus. Oropharynx has dry mucous membranes. No cervical or supraclavicular lymphadenopathy. LUNGS: Clear to auscultation bilaterally. HEART: Regular rate and rhythm without murmur. ABDOMEN: Soft. He has ventral hernia. He has enlarged liver that is palpable well below the right costal margins. He does not have tenderness associated with the ventral hernia in the epigastric region or over the liver edge. EXTREMITIES: No lower extremity edema. RECTAL: Reveals scant amount of dark stool in the rectal vault. LABORATORY DATA: Sodium 136, potassium 5.1, CO2 17, up from 14, creatinine is 1.13, bilirubin is 1.1, AST 54, ALT 34, alkaline phosphatase 200, albumin 4.1, lipase 114, ammonia 44. IMAGING: CT scan of the abdomen and pelvis, which shows fatty infiltration of the liver and hepatomegaly. The ventral abdominal hernia was noted with some fluid and stranding around the fat in the hernia. He has had some prominent lymph nodes around the portal region. IMPRESSION: 1. Nausea, vomiting, and diarrhea over the last few days. He reportedly vomited some red blood in the emergency room. However, his hemoglobin is stable at 12. He could have a viral illness or this could be related to another metabolic process. He does have suggestion of alcoholic ketoacidosis or starvation ketosis. He is doing better with hydration. 2. Hematemesis. It does not appear to be a large volume. This might be secondary to a Cindy-Yang tear. 3. Alcohol abuse. 4. Fatty liver disease. RECOMMENDATIONS: 1. Supportive care and rehydration. 2. Proton pump inhibitor. 3. Depending on his clinical course, we will tentatively plan for upper endoscopy on . 4. Alcohol cessation is recommended. Job ID: [id number]
[2019-05-21] MEDS: Pantoprazole 80 MG, Admixture Fee 1 EACH in Sodium Chloride 0.9% 100 ML IVPB SCH ×3 (03:20→23:55)
[2019-05-21] MEDS: Sodium Chloride 0.9% 1,000 ML IV SCH (03:20)
[2019-05-21 06:29] LABS: #Eosinphils 0.1 thou/uL (0.0-0.7); #Lymphocytes 1.6 thou/uL (1.20-3.40); #Monocytes 0.7 thou/uL (0.11-0.59); #Neutrophils 6.1 thou/uL (1.40-6.50); %Basophils 0.4 % (0.0-1.0); %Eosinophils 1.5 % (0.0-10.0); %Lymphocytes 18.5 % (21.0-51.0); %Monocytes 8.5 % (0.0-10.0); Hemoglobin 10.7 g/dL (14.0-18.0); Mean Corpuscular HGB CONC 33.9 g/dL (32.0-36.0); Mean Corpuscular Hemoglobin 32.7 pg (27.0-31.0); Mean Corpuscular Volume 96.4 fL (78.0-98.0); Mean Platelet Volume 7.4 fL (7.4-10.4); Platelet Count 122 thou/uL (130-400); RBC Distribution Width 14.7 % (11.5-14.5); Red Blood Cell (RBC) Count 3.27 mill/uL (4.70-6.10); White Blood Cell (WBC) Count 8.7 thou/uL (4.8-10.8)
[2019-05-21 06:51] LABS: ALT (SGPT) 25 U/L (8-55); AST (SGOT) 49 U/L (5-34); Albumin 3.4 g/dL (3.4-4.8); Alkaline Phosphatase 168 U/L (40-110); Anion Gap 17 mmol/L (10-20); BUN (Urea Nitrogen) 9 mg/dL (8.4-25.7); Calc. Creatinine Clearance 89 mL/min (70-130); Calcium 7.9 mg/dL (7.8-10.44); Carbon Dioxide 21 mmol/L (23-31); Chloride 105 mmol/L (98-107); Estimated GFR-MDRD 85; Globulin 2.7 g/dL (2.4-3.5); Glucose 109 mg/dL (83-110); Potassium 3.8 mmol/L (3.5-5.1); Protein, Total 6.1 g/dL (5.8-8.1); Sodium 139 mmol/L (136-145)
[2019-05-21] MEDS ORDERED: Lorazepam 2 MG/ML VIAL SLOW IVP PRN (07:09)
[2019-05-21] MEDS ORDERED: Folic Acid 1 MG TAB PO SCH (09:00)
[2019-05-21] MEDS ORDERED: Thiamine 100 MG TAB PO SCH (09:00)
[2019-05-21] MEDS: hydrALAZINE 25 MG TAB PO SCH ×2 (09:47→20:50)
[2019-05-21] MEDS: Lisinopril 20 MG TAB PO SCH ×2 (09:47→20:50)
[2019-05-21] MEDS: Metoprolol Tartrate 25 MG TAB PO SCH ×2 (09:48→20:50)
[2019-05-21] MEDS: Multivitamins, Adult 10 ML, Folic Acid 1 MG, Thiamine HCl 100 MG in Dextrose 5 %-0.45 %... IV SCH ×2 (09:48)
--- NOTE | 2019-05-21 13:53 | PDOC.HOSPP ---
- Subjective Encounter Date: 05/21/19 Encounter Time: 08:45 Subjective: pt up in bed no complains - Objective Vital Signs & Weight: Vital Signs (12 hours) Temp Pulse Resp BP Pulse Ox 05/21/19 11:48 98.3 F 94 144/68 H 97 05/21/19 09:47 109 H 05/21/19 07:35 98.3 F 109 H 18 163/83 H 97 05/21/19 03:21 97.5 F L 110 H 18 147/84 H 96 Weight Weight 212 lb 12.8 oz I&O: 05/20/19 05/21/19 05/22/19 06:59 06:59 06:59 Intake Total 2506 860 Output Total 500 Balance 2506 360 Result Diagrams: 05/21/19 06:13 05/21/19 06:13 Hospitalist ROS - Review of Systems Cardiovascular: denies: chest pain, palpitations, orthopnea, paroxysmal noc. dyspnea, edema, light headedness, other Gastrointestinal: denies: nausea, vomiting, abdominal pain, diarrhea, constipation, melena, hematochezia, other Genitourinary: denies: dysuria, frequency, incontinence, hematuria, retention, other - Medication Medications: Active Medications Generic Name Dose Route Start Last Admin Trade Name Freq PRN Reason Stop Dose Admin Hydralazine HCl 25 mg 05/21/19 09:00 05/21/19 09:47 Apresoline PO 25 mg BID HAIR Administration Multivitamins 10 ml/ Folic 1,011.2 mls @ 125 mls/hr 05/20/19 11:15 05/21/19 09:48 Acid 1 mg/ Thiamine HCl 100 mg IV 1,011.2 mls / Dextrose/Sodium Chloride Q24HR HAIR Administration Pantoprazole Sodium 80 mg/ 100 mls @ 10 mls/hr 05/20/19 11:30 05/21/19 03:20 Miscellaneous Medication 1 IVPB 05/23/19 23:30 100 mls each/ Sodium Chloride INF HAIR Administration Multivitamins 10 ml/ Folic 1,011.2 mls @ 100 mls/hr 05/21/19 07:15 05/21/19 09:48 Acid 1 mg/ Thiamine HCl 100 mg IV Not Given / Dextrose/Sodium Chloride Q24HR HAIR Lisinopril 20 mg 05/21/19 09:00 05/21/19 09:47 Zestril PO 20 mg BID HAIR Administration Metoprolol Tartrate 25 mg 05/21/19 09:00 05/21/19 09:48 Lopressor PO 25 mg BID HAIR Administration - Exam Heart: negative: RRR, no murmur, no gallops, no rubs, normal peripheral pulses, irregular, diminshed peripheral pulses, murmur present, II/IV, III/IV Respiratory: negative: CTAB, no wheezes, no rales, no ronchi, normal chest expansion, no tachypnea, normal percussion, rales, rhonchi, tachypneic, wheezes Gastrointestinal: negative: soft, non-tender, non-distended, normal bowel sounds , no palpable masses, no hepatomegaly, no splenomegaly, no bruit, no guarding, no rigidity, tender to palpation, distended, diminished bowl sounds, voluntary guarding Extremities: negative: no cyanosis, no clubbing, no edema, 1+ LE edema, 2+ LE edema, clubbing Hosp A/P (1) Alcohol abuse Code(s): F10.10 - ALCOHOL ABUSE, UNCOMPLICATED Status: Acute (2) HTN (hypertension) Code(s): I10 - ESSENTIAL (PRIMARY) HYPERTENSION Status: Acute (3) Hernia Code(s): K46.9 - UNSPECIFIED ABDOMINAL HERNIA WITHOUT OBSTRUCTION OR GANGRENE Status: Acute (4) Left arm weakness Code(s): R29.898 - OTH SYMPTOMS AND SIGNS INVOLVING THE MUSCULOSKELETAL SYSTEM Status: Acute (5) Diarrhea Code(s): R19.7 - DIARRHEA, UNSPECIFIED Status: Acute - Plan pt was admitted last month and stroke work up was negative. He was seen by ortho for his left arm weakness which is not new. MRI cervical spine was not helpful due to movement. He was then sent to rehab. pt has elevated lactoferrin in his stool, ct no wall thickening of the colon. occult is negative. pt has been drinking. will put him on withdrawal protocol. thiamine and folic acid has been ordered. His hh is stable.
[2019-05-21 14:57] LABS: Magnesium 1.2 mg/dL (1.6-2.6); Phosphorus 1.1 mg/dL (2.3-4.7)
[2019-05-21] MEDS ORDERED: Prevnar 13-Val Conj/PF 0.5 ML SYRINGE IM ONE (15:15)
[2019-05-21] MEDS ORDERED: Magnesium 2 GM/50 ML 2 GM in Premix Bag 1 BAG IVPB SCH ×2 (15:15→17:30)
[2019-05-21] MEDS ORDERED: Potassium Phosphate 9 MMOL in Sodium Chloride 0.9% 100 ML IVPB SCH ×2 (15:15→17:30)
--- NOTE | 2019-05-21 16:31 | PRG ---
DATE OF SERVICE: 05/21/2019 SUBJECTIVE: Mr. Piper feels better today. Less nausea. He is tolerating some clear liquids. He reports two black stools today. OBJECTIVE: VITAL SIGNS: Temperature 98.3, pulse 101, blood pressure 149/92. GENERAL: He is in no acute distress. Alert and oriented x3. Appears more comfortable today, sitting up on the side of his bed. LUNGS: Clear to auscultation bilaterally. HEART: Regular rate and rhythm without murmur. ABDOMEN: Soft, nontender, nondistended. Bowel sounds are present. EXTREMITIES: No lower extremity edema. LABORATORY DATA: White blood cell count 8.7, hemoglobin 10.7, platelets 122, creatinine 1.04, bilirubin 1.0, AST 49, ALT 25, alkaline phosphatase 168, albumin 3.4. IMPRESSION: 1. Hematemesis. He has passed a couple of black stools today. We will plan for esophagogastroduodenoscopy tomorrow. 2. Alcohol abuse. 3. Abnormal liver tests. His AST is greater than the ALT and his platelets are low, which could be a sign of portal hypertension and cirrhosis or could just be due to alcoholic liver disease. 4. He did report diarrhea for few days prior to admission. His lactoferrin is elevated. Ova and parasite are negative. Campylobacter antigen and shiga toxin are negative. C. diff is negative. RECOMMENDATIONS: 1. Proton pump inhibitor. 2. Follow trend of the hemoglobin. 3. We will plan for EGD tomorrow. 4. Alcohol cessation is advised. Job ID: [id number]
[2019-05-21] MEDS: Atorvastatin Calcium 40 MG TAB PO SCH (20:50)
[2019-05-22 05:18] LABS: #Eosinphils 0.2 thou/uL (0.0-0.7); #Lymphocytes 2.3 thou/uL (1.20-3.40); #Monocytes 0.8 thou/uL (0.11-0.59); #Neutrophils 6.4 thou/uL (1.40-6.50); %Basophils 0.1 % (0.0-1.0); %Eosinophils 1.8 % (0.0-10.0); %Lymphocytes 23.6 % (21.0-51.0); %Monocytes 8.6 % (0.0-10.0); %Neutrophils 65.9 % (42.0-75.0); Hemoglobin 11.6 g/dL (14.0-18.0); Mean Corpuscular HGB CONC 33.8 g/dL (32.0-36.0); Mean Corpuscular Hemoglobin 32.5 pg (27.0-31.0); Mean Platelet Volume 8.1 fL (7.4-10.4); Platelet Count 117 thou/uL (130-400); RBC Distribution Width 14.6 % (11.5-14.5); Red Blood Cell (RBC) Count 3.59 mill/uL (4.70-6.10); White Blood Cell (WBC) Count 9.8 thou/uL (4.8-10.8)
[2019-05-22 05:30] LABS: Anion Gap 13 mmol/L (10-20); BUN (Urea Nitrogen) 4 mg/dL (8.4-25.7); Calc. Creatinine Clearance 117 mL/min (70-130); Calcium 8.1 mg/dL (7.8-10.44); Carbon Dioxide 25 mmol/L (23-31); Chloride 104 mmol/L (98-107); Estimated GFR-MDRD Greater than 90; Glucose 127 mg/dL (83-110); Magnesium 1.5 mg/dL (1.6-2.6); Potassium 3.6 mmol/L (3.5-5.1); Sodium 138 mmol/L (136-145)
[2019-05-22 05:34] LABS: Phosphorus 1.2 mg/dL (2.3-4.7)
[2019-05-22] MEDS: Metoprolol Tartrate 25 MG TAB PO SCH ×2 (06:00→21:20)
[2019-05-22] MEDS ORDERED: Magnesium 2 GM/50 ML 2 GM in Premix Bag 1 BAG IVPB SCH (06:30)
[2019-05-22] MEDS ORDERED: Potassium Phosphate 9 MMOL in Sodium Chloride 0.9% 100 ML IVPB SCH (06:30)
[2019-05-22] MEDS: Lisinopril 20 MG TAB PO SCH ×2 (08:21→21:19)
[2019-05-22] MEDS: Folic Acid 1 MG TAB PO SCH (08:21)
[2019-05-22] MEDS: hydrALAZINE 25 MG TAB PO SCH ×2 (08:21→21:20)
[2019-05-22] MEDS: Aspirin 81 mg Enteric Coated Tablet PO SCH (08:21)
[2019-05-22] MEDS: Thiamine 100 MG TAB PO SCH (08:21)
[2019-05-22] MEDS: PHOS-NAK 1 PKT PACK PO SCH ×2 (09:02→21:20)
[2019-05-22] MEDS: Magnesium Oxide 400 MG TAB PO SCH ×2 (09:02→21:20)
[2019-05-22] MEDS: Multivitamins, Adult 10 ML, Folic Acid 1 MG, Thiamine HCl 100 MG in Dextrose 5 %-0.45 %... IV SCH (10:09)
--- NOTE | 2019-05-22 17:39 | PDOC.HOSPP ---
- Subjective Encounter Date: 05/22/19 Encounter Time: 10:35 Subjective: 69 y/o male with HTN and chronic alcohola abuse admitted with nausea/vomiting associated with hematemesis, poor oral intake and generalized weakness. Found to have ketoacidosis with AGMA, elevated lipase, hypovolemia and electrolyte derangements. GI consult was requested for EGD but patient decline EGD earlier toda,. Desires to go home. nausea and vomiting has subsided and patient is tolerated clear liquid. - Objective Vital Signs & Weight: Vital Signs (12 hours) Temp Pulse Resp BP BP Pulse Ox 05/22/19 08:21 81 154/83 H 05/22/19 08:00 96 05/22/19 07:42 99.5 F 81 16 154/83 H 96 Weight Weight 212 lb 12.8 oz I&O: 05/21/19 05/22/19 05/23/19 06:59 06:59 06:59 Intake Total 2506 2900 Output Total 700 Balance 2506 2200 Result Diagrams: 05/22/19 04:39 05/22/19 04:40 Hospitalist ROS - Medication Medications: Active Medications Generic Name Dose Route Start Last Admin Trade Name Freq PRN Reason Stop Dose Admin Aspirin 81 mg 05/22/19 09:00 05/22/19 08:21 Ecotrin PO 81 mg DAILY HAIR Administration Atorvastatin Calcium 40 mg 05/21/19 21:00 05/21/19 20:50 Lipitor PO 40 mg HS HAIR Administration Folic Acid 1 mg 05/22/19 09:00 05/22/19 08:21 Folvite PO 1 mg DAILY HAIR Administration Pantoprazole Sodium 80 mg/ 100 mls @ 10 mls/hr 05/20/19 11:30 05/21/19 23:55 Miscellaneous Medication 1 IVPB 05/23/19 23:30 100 mls each/ Sodium Chloride INF HAIR Administration Multivitamins 10 ml/ Folic 1,011.2 mls @ 100 mls/hr 05/21/19 07:15 05/22/19 10:09 Acid 1 mg/ Thiamine HCl 100 mg IV 1,011.2 mls / Dextrose/Sodium Chloride Q24HR HAIR Administration Lisinopril 20 mg 05/21/19 09:00 05/22/19 08:21 Zestril PO 20 mg BID HAIR Administration Magnesium Oxide 400 mg 05/22/19 09:00 05/22/19 09:02 Magnesium Oxide PO 400 mg BID HAIR Administration Metoprolol Tartrate 25 mg 05/21/19 09:00 05/22/19 06:00 Lopressor PO 25 mg BID HAIR Administration Miscellaneous Medication 1 pkt 05/22/19 09:00 05/22/19 09:02 Phos-Nak PO 1 pkt BID HAIR Administration Thiamine HCl 100 mg 05/22/19 09:00 05/22/19 08:21 Thiamine PO 100 mg DAILY HAIR Administration - Exam General Appearance: awake alert Eye: anicteric sclera ENT: normocephalic atraumatic, moist mucosa Neck: symmetric, no JVD Heart: RRR Respiratory: no wheezes, no rales, no ronchi, normal chest expansion, no tachypnea Gastrointestinal: soft, non-tender, normal bowel sounds Gastrointestinal - other findings: enlarged with ventral hernia Extremities: 1+ LE edema Neurological: cranial nerve grossly intact, no focal deficits Psychiatric: A&O x 3 Hosp A/P (1) Chronic alcohol abuse Code(s): F10.10 - ALCOHOL ABUSE, UNCOMPLICATED Status: Acute (2) High anion gap metabolic acidosis Code(s): E87.2 - ACIDOSIS Status: Acute (3) Ketoacidosis Code(s): E87.2 - ACIDOSIS Status: Acute (4) Nausea and vomiting Code(s): R11.2 - NAUSEA WITH VOMITING, UNSPECIFIED Status: Acute (5) Physical deconditioning Code(s): R53.81 - OTHER MALAISE Status: Acute (6) Hypovolemia associated with vomiting Code(s): E86.1 - HYPOVOLEMIA Status: Acute (7) Fatty liver, alcoholic Code(s): K70.0 - ALCOHOLIC FATTY LIVER Status: Acute (8) Hypomagnesemia Code(s): E83.42 - HYPOMAGNESEMIA Status: Acute (9) Adrenal nodule Code(s): E27.8 - OTHER SPECIFIED DISORDERS OF ADRENAL GLAND Status: Acute (10) Acute GI bleeding Code(s): K92.2 - GASTROINTESTINAL HEMORRHAGE, UNSPECIFIED Status: Acute (11) HTN (hypertension) Code(s): I10 - ESSENTIAL (PRIMARY) HYPERTENSION Status: Acute (12) Hypophosphatemia Code(s): E83.39 - OTHER DISORDERS OF PHOSPHORUS METABOLISM Status: Acute (13) Hypokalemia Code(s): E87.6 - HYPOKALEMIA Status: Acute (14) Diarrhea Code(s): R19.7 - DIARRHEA, UNSPECIFIED Status: Acute - Plan Continue PPI Replete serum electrolytes. Advance diet as tolerated. Antiemetic as needed PT/OT Re check electrolytes in the am.
[2019-05-22] MEDS: Pantoprazole 80 MG, Admixture Fee 1 EACH in Sodium Chloride 0.9% 100 ML IVPB SCH (18:31)
--- NOTE | 2019-05-22 18:33 | PRG ---
DATE OF SERVICE: 05/22/2019 SUBJECTIVE: Mr. Piper has no abdominal pain today. He reports his stools have turned back to brown. He declined endoscopy today. OBJECTIVE: VITAL SIGNS: Temperature 99.5, pulse 81, and blood pressure 154/83. GENERAL: He is in no acute distress. Alert and oriented x3. LUNGS: Clear to auscultation bilaterally. HEART: Regular rate and rhythm without murmur. ABDOMEN: Soft. Mild tenderness in the epigastric region over his ventral hernia. Bowel sounds are present. EXTREMITIES: No lower extremity edema. LABORATORY DATA: Creatinine 0.79, phosphorus normal at 1.2, magnesium 1.5, and hemoglobin is 11.6. IMPRESSION: 1. Hematemesis and melena. This could have been due to a Cindy-Yang tear, peptic ulcer. The patient declines endoscopy. 2. Alcohol abuse. 3. Abnormal liver function tests with AST greater than ALT and thrombocytopenia, which could indicate underlying chronic liver disease or cirrhosis versus just alcohol-related bone marrow suppression. Alcohol cessation is advised. 4. Electrolyte abnormalities related to his poor nutrition and alcohol abuse. RECOMMENDATIONS: 1. Proton pump inhibitor daily. 2. Advance his diet. 3. Alcohol cessation. 4. I will sign off. Please call if GI can be of assistance. Job ID: [id number]
[2019-05-22] MEDS: Atorvastatin Calcium 40 MG TAB PO SCH (21:20)
[2019-05-23] MEDS: Pantoprazole 80 MG, Admixture Fee 1 EACH in Sodium Chloride 0.9% 100 ML IVPB SCH (04:12)
[2019-05-23 08:51] LABS: Mean Corpuscular HGB CONC 33.3 g/dL (32.0-36.0); Mean Corpuscular Hemoglobin 32.3 pg (27.0-31.0); Mean Corpuscular Volume 97.1 fL (78.0-98.0); Platelet Count 127 thou/uL (130-400); RBC Distribution Width 14.5 % (11.5-14.5); Red Blood Cell (RBC) Count 3.41 mill/uL (4.70-6.10); White Blood Cell (WBC) Count 9.3 thou/uL (4.8-10.8)
[2019-05-23] MEDS: Multivitamins, Adult 10 ML, Folic Acid 1 MG, Thiamine HCl 100 MG in Dextrose 5 %-0.45 %... IV SCH ×2 (08:55)
[2019-05-23] MEDS: Aspirin 81 mg Enteric Coated Tablet PO SCH (08:55)
[2019-05-23] MEDS: hydrALAZINE 25 MG TAB PO SCH ×2 (08:56→21:38)
[2019-05-23] MEDS: Metoprolol Tartrate 25 MG TAB PO SCH ×2 (08:56→21:38)
[2019-05-23] MEDS: Folic Acid 1 MG TAB PO SCH (08:56)
[2019-05-23] MEDS: Lisinopril 20 MG TAB PO SCH ×2 (08:56→21:37)
[2019-05-23] MEDS: Magnesium Oxide 400 MG TAB PO SCH ×2 (08:56→21:38)
[2019-05-23] MEDS: PHOS-NAK 1 PKT PACK PO SCH ×2 (08:57→21:37)
[2019-05-23] MEDS: Thiamine 100 MG TAB PO SCH (08:57)
[2019-05-23 09:26] LABS: Albumin 3.2 g/dL (3.4-4.8); Anion Gap 12 mmol/L (10-20); Calc. Creatinine Clearance 127 mL/min (70-130); Calcium 7.7 mg/dL (7.8-10.44); Carbon Dioxide 23 mmol/L (23-31); Chloride 104 mmol/L (98-107); Estimated GFR-MDRD Greater than 90; Glucose 187 mg/dL (83-110); Magnesium 1.2 mg/dL (1.6-2.6); Phosphorus 1.5 mg/dL (2.3-4.7); Potassium 3.4 mmol/L (3.5-5.1); Sodium 136 mmol/L (136-145)
[2019-05-23 11:36] LABS: BUN/Creatinine Ratio 5.48
[2019-05-23 11:38] LABS: BUN (Urea Nitrogen) 4 mg/dL (8.4-25.7)
[2019-05-23] MEDS ORDERED: Potassium Phosphate 30 MMOL in Sodium Chloride 0.9% 500 ML IVPB SCH (12:00)
[2019-05-23] MEDS ORDERED: Magnesium Sulfate 4 GM in Sodium Chloride 0.9% 250 ML 250 ML IVPB SCH (12:00)
--- NOTE | 2019-05-23 15:14 | PDOC.HOSPP ---
- Subjective Encounter Date: 05/23/19 Encounter Time: 09:11 Subjective: 69 y/o male with HTN and chronic alcohola abuse admitted with nausea/vomiting associated with hematemesis, poor oral intake and generalized weakness. Found to have ketoacidosis with AGMA, elevated lipase, hypovolemia and electrolyte derangements. Patient declined EGD recommended by GI. Nausea and vomiting has subsided and patient is tolerating oral intake. - Objective Vital Signs & Weight: Vital Signs (12 hours) Temp Pulse Resp BP BP BP Pulse Ox 05/23/19 12:25 98.3 F 92 16 155/83 H 97 05/23/19 08:56 102 H 169/80 H 05/23/19 08:00 169/80 H 05/23/19 07:38 99.5 F 102 H 16 159/80 H 96 Weight Weight 212 lb 12.8 oz I&O: 05/22/19 05/23/19 05/24/19 06:59 06:59 06:59 Intake Total 2900 Output Total 700 Balance 2200 Result Diagrams: 05/23/19 08:38 05/23/19 08:38 Hospitalist ROS - Medication Medications: Active Medications Generic Name Dose Route Start Last Admin Trade Name Freq PRN Reason Stop Dose Admin Aspirin 81 mg 05/22/19 09:00 05/23/19 08:55 Ecotrin PO 81 mg DAILY HAIR Administration Atorvastatin Calcium 40 mg 05/21/19 21:00 05/22/19 21:20 Lipitor PO 40 mg HS HAIR Administration Folic Acid 1 mg 05/22/19 09:00 05/23/19 08:56 Folvite PO 1 mg DAILY HAIR Administration Hydralazine HCl 50 mg 05/22/19 21:00 05/23/19 08:56 Apresoline PO 50 mg BID HAIR Administration Pantoprazole Sodium 80 mg/ 100 mls @ 10 mls/hr 05/20/19 11:30 05/23/19 04:12 Miscellaneous Medication 1 IVPB 05/23/19 23:30 100 mls each/ Sodium Chloride INF HAIR Administration Multivitamins 10 ml/ Folic 1,011.2 mls @ 100 mls/hr 05/21/19 07:15 05/23/19 08:55 Acid 1 mg/ Thiamine HCl 100 mg IV 1,011.2 mls / Dextrose/Sodium Chloride Q24HR HAIR Administration Lisinopril 20 mg 05/21/19 09:00 05/23/19 08:56 Zestril PO 20 mg BID HAIR Administration Magnesium Oxide 400 mg 05/22/19 09:00 05/23/19 08:56 Magnesium Oxide PO 400 mg BID HAIR Administration Metoprolol Tartrate 50 mg 05/23/19 09:00 05/23/19 08:56 Lopressor PO 50 mg BID HAIR Administration Miscellaneous Medication 1 pkt 05/22/19 09:00 05/23/19 08:57 Phos-Nak PO 1 pkt BID HAIR Administration Thiamine HCl 100 mg 05/22/19 09:00 05/23/19 08:57 Thiamine PO 100 mg DAILY HAIR Administration - Exam General Appearance: awake alert Eye: PERRL ENT: normocephalic atraumatic, moist mucosa Neck: supple, symmetric Heart: RRR Respiratory: no wheezes, no ronchi, normal chest expansion, no tachypnea Gastrointestinal: soft, non-tender, non-distended, normal bowel sounds Gastrointestinal - other findings: enlarged with ventral hernia Extremities: no edema Neurological: cranial nerve grossly intact Neurological - other findings: No tremor. ambulating with PT Psychiatric: A&O x 3 Hosp A/P (1) Chronic alcohol abuse Code(s): F10.10 - ALCOHOL ABUSE, UNCOMPLICATED Status: Acute (2) High anion gap metabolic acidosis Code(s): E87.2 - ACIDOSIS Status: Acute (3) Ketoacidosis Code(s): E87.2 - ACIDOSIS Status: Acute (4) Nausea and vomiting Code(s): R11.2 - NAUSEA WITH VOMITING, UNSPECIFIED Status: Acute (5) Physical deconditioning Code(s): R53.81 - OTHER MALAISE Status: Acute (6) Hypovolemia associated with vomiting Code(s): E86.1 - HYPOVOLEMIA Status: Acute (7) Fatty liver, alcoholic Code(s): K70.0 - ALCOHOLIC FATTY LIVER Status: Acute (8) Hypomagnesemia Code(s): E83.42 - HYPOMAGNESEMIA Status: Acute (9) Adrenal nodule Code(s): E27.8 - OTHER SPECIFIED DISORDERS OF ADRENAL GLAND Status: Acute (10) Acute GI bleeding Code(s): K92.2 - GASTROINTESTINAL HEMORRHAGE, UNSPECIFIED Status: Acute (11) HTN (hypertension) Code(s): I10 - ESSENTIAL (PRIMARY) HYPERTENSION Status: Acute (12) Hypophosphatemia Code(s): E83.39 - OTHER DISORDERS OF PHOSPHORUS METABOLISM Status: Acute (13) Hypokalemia Code(s): E87.6 - HYPOKALEMIA Status: Acute (14) Diarrhea Code(s): R19.7 - DIARRHEA, UNSPECIFIED Status: Acute - Plan Continue PPI. Change to oral. Replete serum potassium, phosporus and magnesium Antiemetic as needed PT/OT Re check electrolytes in the am. Case management to help with placement
[2019-05-23] MEDS: Atorvastatin Calcium 40 MG TAB PO SCH (21:37)
[2019-05-24 07:48] VITALS: BP 170/82; TEMP 99.2
[2019-05-24] MEDS: Lisinopril 20 MG TAB PO SCH (07:48)
[2019-05-24] MEDS: Aspirin 81 mg Enteric Coated Tablet PO SCH (07:49)
[2019-05-24] MEDS: Metoprolol Tartrate 25 MG TAB PO SCH (07:49)
[2019-05-24] MEDS: hydrALAZINE 25 MG TAB PO SCH (07:49)
[2019-05-24] MEDS: Thiamine 100 MG TAB PO SCH (07:49)
[2019-05-24] MEDS: Magnesium Oxide 400 MG TAB PO SCH (07:49)
[2019-05-24] MEDS: Folic Acid 1 MG TAB PO SCH (07:50)
[2019-05-24] MEDS: PHOS-NAK 1 PKT PACK PO SCH (07:50)
[2019-05-24] MEDS: Multivitamins, Adult 10 ML, Folic Acid 1 MG, Thiamine HCl 100 MG in Dextrose 5 %-0.45 %... IV SCH (08:10)
[2019-05-24 12:55] LABS: Albumin 3.6 g/dL (3.4-4.8); Anion Gap 13 mmol/L (10-20); BUN (Urea Nitrogen) 4 mg/dL (8.4-25.7); BUN/Creatinine Ratio 5.56; Calc. Creatinine Clearance 128 mL/min (70-130); Calcium 8.2 mg/dL (7.8-10.44); Carbon Dioxide 26 mmol/L (23-31); Chloride 101 mmol/L (98-107); Estimated GFR-MDRD Greater than 90; Glucose 119 mg/dL (83-110); Magnesium 1.6 mg/dL (1.6-2.6); Phosphorus 3.2 mg/dL (2.3-4.7); Potassium 3.8 mmol/L (3.5-5.1); Sodium 136 mmol/L (136-145)
--- NOTE | 2019-05-25 06:22 | DIS ---
DATE OF ADMISSION: 05/21/2019 DATE OF DISCHARGE: 05/24/2019 DISCHARGE DIAGNOSES: 1. Acute gastrointestinal bleeding. 2. Acute on chronic anemia, present on admission. 3. High anion gap metabolic acidosis. 4. Ketoacidosis. 5. Nausea and vomiting. 6. Physical deconditioning. 7. Hypovolemia associated with vomiting. 8. Alcoholic liver disease/fatty liver. 9. Hypomagnesemia. 10. Bilateral adrenal nodule. 11. Hypertension. 12. Hypophosphatemia. 13. Hypokalemia. 14. Diarrhea. 15. Chronic alcohol abuse. 16. Acute kidney injury, present on admission. 17. Hypomagnesemia. 18. Thrombocytopenia. CONSULTS: Gastroenterology. HOSPITAL COURSE: A 69-year-old male with known history of hypertension and chronic alcohol abuse, admitted with nausea and vomiting associated with hematemesis, poor oral intake and generalized weakness. The patient was found to have ketoacidosis with anion gap metabolic acidosis, elevated lipase, hypovolemia and multiple electrolyte derangements as needed as well as antiemetics and analgesics with improvement. GI consult was obtained and EGD was recommended; however, the patient declined this. He was subsequently restarted on diet, which was well tolerated. The patient was found to have physical deconditioning and PT consult was obtained, but the patient was not very very helpful, declining occasionally treatment. Given physical deconditioning, the patient was sent for rehab evaluation and was accepted, but he declined admission to rehab. He preferred to go home. Sister was contacted due to patient's refusal of care, but the patient's sister reported that the patient is coherent and is within his power to make decision what he wants. They started to attempt to convince the patient to go to rehab. The patient insisted and he was subsequently discharged home. He was also instructed to make appointment to follow up with his primary care physician within 1 week. PHYSICAL EXAMINATION: VITAL SIGNS: Temperature 99.2, pulse 108, respiratory rate 20, SpO2 of 96% on room air, blood pressure is 170/82. GENERAL: Comfortable elderly male, in no obvious distress. Afebrile. Anicteric. Acyanotic. HEENT: Normocephalic, atraumatic. Oral mucosa is moist. CARDIOVASCULAR: Regular rhythm and rate. RESPIRATORY: Fair air entry bilaterally with some transmitted breath sounds, but no obvious rhonchi or crackle. GI: Obese with ventral hernia. Nontender with normal bowel sounds. EXTREMITIES: Grossly normal looking, atraumatic with trace leg edema. No erythema appreciated. MEAT WASHER: Conscious and alert, oriented x3 with appropriate mental status. Moves all extremities. Ambulant with a walker. DISCHARGE CONDITION: Improved. DISCHARGE DISPOSITION: Home. DISCHARGE MEDICATIONS: 1. Aspirin 81 mg p.o. daily. 2. Lipitor 40 mg p.o. daily at bedtime. 3. Folic acid 1 mg p.o. daily. 4. Hydralazine 50 mg p.o. b.i.d. and increased from 25 mg p.o. b.i.d. on admission. 5. Lisinopril 20 mg p.o. b.i.d. 6. Magnesium oxide 400 mg p.o. b.i.d. 7. Metoprolol 50 mg p.o. b.i.d. Increased from 25 p.o. b.i.d. on admission. 8. Protonix 40 mg p.o. b.i.d. 9. Thiamine 100 mg p.o. daily. TIME SPENT: This discharge took more than 37 minutes. Job ID: [id number]
--- NOTE | 2019-05-27 08:15 | PQF ---
KEREN REYES Jordan ARACELI KEYS [id number] CLINICAL DOCUMENTATION CLARIFICATION FORM: POST DISCHARGE Addendum to original discharge summary date: ____ Late entry note date: __ DATE: 05/27/19 ATTN:ARACELI KEYS Please exercise your independent, professional judgment in responding to the clarification form. Clinical indicators are provided on the bottom of this form for your review Please check appropriate box(s): [ ] Acute Gastrointestinal Bleed due to Cindy-Yang Tear [ ] Acute Gastrointestinal Bleed due to Peptic ulcer [ ] Acute Gastrointestinal Bleed due to unspecified cause [ ] Other diagnosis [ ] Unable to determine For continuity of documentation, please document condition throughout progress notes and discharge summary. Thank You. CLINICAL INDICATORS - SIGNS / SYMPTOMS / LABS -Hematemesis and melena, this could have been due to Cindy-Yang tear, peptic ulcer- Progress note, 05/22, Jeremy Urbina MD -Acute gastrointestinal bleeding -, 05/24, ARACELI KEYS -EGD recommended: however, the patient declined this -DS, 05/24, ARACELI KEYS -Hypovolemia associated with vomiting--DS, 05/24, OBARACELI Sharma RISK FACTORS -Thrombocytopenia- -DS, 05/24, ARACELI KEYS - Chronic alcohol abuse--DS, 05/24, ARACELI KEYS TREATMENTS: -Consultation: Gastroenterology--DS, 05/24, ARACELI KEYS -Protonix.IV- MAR, 05/20 (This form is maintained as a part of the permanent medical record) 2014 [employer]. All Rights Reserved Ruth Curran [not provided] [not provided] MTDD
== END 2019-05-24 14:27 | disposition home or self-care (01) | DRG 378 ==
LOC: ERS 10:35 → 2SW 14:20 → OBSVTOIN 05-21 14:16 → T4-A 05-21 17:07
PROVIDERS: ADMIT Internal Medicine; ATTEND Internal Medicine
DX: K92.2 Gastrointestinal hemorrhage, unspecified (principal); E87.2 Acidosis; N17.9 Acute kidney failure, unspecified; D64.9 Anemia, unspecified; R53.81 Other malaise; E86.1 Hypovolemia; K70.9 Alcoholic liver disease, unspecified; K70.0 Alcoholic fatty liver; E83.42 Hypomagnesemia; I10 Essential (primary) hypertension; E83.39 Other disorders of phosphorus metabolism; E87.6 Hypokalemia; F10.10 Alcohol abuse, uncomplicated; D69.6 Thrombocytopenia, unspecified; E78.5 Hyperlipidemia, unspecified; K46.9 Unspecified abdominal hernia without obstruction or gangrene; F17.210 Nicotine dependence, cigarettes, uncomplicated
CPT/HCPCS: 36415; 71045; 74177; 80048; 80053; 80069; 80307; 81003; 81015; 82010; 82140; 82274; 82330; 82550; 82803; 82805; 83036; 83605; 83630; 83690; 83735; 84100; 84443; 84484; 85025; 85027; 86850; 86900; 86901; 87045; 87046; 87086; 87324; 87328; 87329; 87427; 87449; 93005; 94760; 96361; 96365; 96368; 96375; C9113; J3411; J3475; J3490; J7042; J7050

== ENCOUNTER 2020-05-14 08:13 | Outpatient (CLI) | payer MEDICARE, MEDICAID ==
--- NOTE | 2020-05-14 09:12 | CT ---
EXAM: CT chest without contrast per low-dose cancer screening protocol HISTORY: History of smoking and nicotine dependence COMPARISON: CT abdomen/pelvis 06/13/2019 TECHNIQUE: Multiple contiguous axial images were obtained in a CT of the chest without contrast per l ow-dose cancer screening protocol. Sagittal and coronal reformats were performed. FINDINGS: Pulmonary nodules: Scattered calcified granulomas are seen throughout the lungs. No suspicious pulmon jerman nodules are seen. No focal infiltrates are seen. Pleural space: No pneumothorax or pleural effusion are seen. Heart: The heart is normal in size. Atherosclerotic callus cages in the aorta. Mediastinum: No hilar or mediastinal lymphadenopathy appreciated on this limited noncontrast examinat ion. Bones: Degenerative changes in the spine. Visualized subdiaphragmatic structures: There is stable fullness of both adrenal glands.. IMPRESSION: Lung RADS category 2-benign findings..
== END 2020-05-14 08:14 | disposition home or self-care (01) ==
LOC: BICCT 08:13
PROVIDERS: ATTEND Family Medicine Sports Medicine
DX: Z12.2 Encounter for screening for malignant neoplasm of respiratory organs (principal); Z87.891 Personal history of nicotine dependence
CPT/HCPCS: G0297

== ENCOUNTER 2020-12-02 21:29 | Inpatient (IN) | payer MEDICARE, MEDICAID ==
[2020-12-02 22:50] VITALS: BMI 32.1
[2020-12-02 23:08] LABS: #Basophils 0.1 thou/uL (0.0-0.2); #Eosinphils 0.1 thou/uL (0.0-0.7); #Lymphocytes 2.2 thou/uL (1.20-3.40); #Monocytes 1.4 thou/uL (0.11-0.59); #Neutrophils 8.3 thou/uL (1.40-6.50); %Basophils 0.6 % (0.0-1.0); %Eosinophils 0.9 % (0.0-10.0); %Lymphocytes 18.1 % (21.0-51.0); %Monocytes 11.3 % (0.0-10.0); %Neutrophils 69.1 % (42.0-75.0); Hemoglobin 11.2 g/dL (14.0-18.0); Mean Corpuscular Hemoglobin 30.6 pg (27.0-31.0); Mean Corpuscular Volume 92.7 fL (78.0-98.0); Mean Platelet Volume 7.1 fL (7.4-10.4); Platelet Count 339 thou/uL (130-400); RBC Distribution Width 15.3 % (11.5-14.5); Red Blood Cell (RBC) Count 3.67 mill/uL (4.70-6.10); White Blood Cell (WBC) Count 11.9 thou/uL (4.8-10.8)
[2020-12-02] MEDS ORDERED: Acetaminophen 325 MG TAB PO PRN (23:20)
[2020-12-02] MEDS ORDERED: Ondansetron ODT 4 MG TAB PO PRN (23:20)
[2020-12-02] MEDS ORDERED: Ondansetron PF 4 MG/2 ML Vial IVP PRN (23:20)
[2020-12-02] MEDS ORDERED: Sodium Bicarbonate 150 MEQ in Dextrose 5% in Water 1,000 ML IV SCH (23:30)
[2020-12-02 23:31] LABS: ALT (SGPT) 8 U/L (8-55); AST (SGOT) 15 U/L (5-34); Albumin 3.6 g/dL (3.4-4.8); Alkaline Phosphatase 100 U/L (40-110); Anion Gap 18 mmol/L (10-20); BUN (Urea Nitrogen) 94 mg/dL (8.4-25.7); Bilirubin, Total 0.4 mg/dL (0.2-1.2); Calc. Creatinine Clearance 9 mL/min (70-130); Calcium 8.7 mg/dL (7.8-10.44); Carbon Dioxide 10 mmol/L (23-31); Chloride 120 mmol/L (98-107); Globulin 2.8 g/dL (2.4-3.5); Glucose 114 mg/dL (83-110); Potassium 6.2 mmol/L (3.5-5.1); Protein, Total 6.4 g/dL (5.8-8.1); Sodium 142 mmol/L (136-145)
[2020-12-03 04:54] LABS: #Eosinphils 0.2 thou/uL (0.0-0.7); #Lymphocytes 1.8 thou/uL (1.20-3.40); #Monocytes 1.3 thou/uL (0.11-0.59); #Neutrophils 6.7 thou/uL (1.40-6.50); %Basophils 0.2 % (0.0-1.0); %Lymphocytes 18.3 % (21.0-51.0); %Monocytes 12.6 % (0.0-10.0); Hemoglobin 10.3 g/dL (14.0-18.0); Mean Corpuscular HGB CONC 33.7 g/dL (32.0-36.0); Mean Corpuscular Volume 91.8 fL (78.0-98.0); Platelet Count 301 thou/uL (130-400); RBC Distribution Width 15.1 % (11.5-14.5); Red Blood Cell (RBC) Count 3.33 mill/uL (4.70-6.10)
[2020-12-03 05:15] LABS: Anion Gap 16 mmol/L (10-20); BUN (Urea Nitrogen) 93 mg/dL (8.4-25.7); Calc. Creatinine Clearance 11 mL/min (70-130); Calcium 8.1 mg/dL (7.8-10.44); Carbon Dioxide 10 mmol/L (23-31); Chloride 119 mmol/L (98-107); Glucose 131 mg/dL (83-110); Potassium 5.1 mmol/L (3.5-5.1); Sodium 140 mmol/L (136-145)
[2020-12-03] MEDS ORDERED: Sodium Bicarbonate 150 MEQ in Dextrose 5% in Water 1,000 ML IV SCH (08:45)
[2020-12-03] MEDS: Heparin 5,000 UNITS/ML VIAL SC SCH ×3 (09:15→21:15)
[2020-12-03] MEDS ORDERED: Calcium Gluconate 4.6 MEQ in Sodium Chloride 0.9% 100 ML IVPB SCH (10:22)
[2020-12-03 11:11] LABS: Platelet Count 321 thou/uL (130-400)
[2020-12-03 11:20] LABS: Fibrinogen 384 mg/dL (253-463); PTT 30.8 sec (22.9-36.1)
[2020-12-03 11:21] LABS: INR-International Normal Ratio 1.1; Prothrombin Time 14.2 sec (12.0-14.7)
[2020-12-03 11:23] LABS: D-Dimer Test 1.82 *mcg/mL (0.27-0.43)
[2020-12-03 11:37] LABS: HBCM Index 0.06 S/CO (0-0.79); HBSAg Index 0.21 S/CO (0-0.99); Hep A IgM AB Non-Reactive (NonReactive); Hep A IgM S/CO 0.26 S/CO (0-0.79); Hep B Surf Ag Non-Reactive S/CO (NonReactive); Hep C IgG Ab Non-Reactive (NonReactive); Hep C Index 0.05 S/CO (0-0.79); Hepatitis B Core IgM Abs Non-Reactive (NonReactive)
[2020-12-03] MEDS ORDERED: Sodium Bicarbonate Tab 325 MG TAB PO SCH (12:00)
[2020-12-03 12:09] LABS: FSP-Qualitative ABNORMAL (Normal); FSP-Semiquantitative >=20 & <40 mcg/mL (Less than 5)
[2020-12-03 12:09] LABS: Bacteria/HPF None Seen HPF (None Seen); Bilirubin Negative (Negative); Blood, Urine Negative (Negative); Clarity Clear (Clear); Glucose, Urine (Dipstick) Normal (Negative); Ketone, Urine Negative (Negative); Leukocyte 75 Leu/uL (Negative); Nitrite Negative (Negative); Protein, Urine (Dipstick) 10 mg/dL (Neg-Trace); RBC/HPF 0-3 HPF (0-3); Specific Gravity, Urine 1.012 (1.002-1.036); Squamous Epithelial None Seen HPF (0-3); Urobilinogen Normal mg/dL (Less than 2); pH, Urine 5.5 (5.0-9.0)
[2020-12-03 12:11] LABS: Urine Culture Reflex Yes Yes
[2020-12-03 13:02] LABS: Creatinine, Urine 118.17 mg/dL (63-166)
[2020-12-03] MEDS: Sodium Bicarbonate Tab 325 MG TAB PO SCH (21:13)
[2020-12-03] MEDS: Famotidine 20 MG TAB PO SCH (21:15)
[2020-12-04 05:01] LABS: ALT (SGPT) 12 U/L (8-55); AST (SGOT) 15 U/L (5-34); Albumin 3.1 g/dL (3.4-4.8); Alkaline Phosphatase 91 U/L (40-110); Anion Gap 14 mmol/L (10-20); BUN (Urea Nitrogen) 64 mg/dL (8.4-25.7); Bilirubin, Total 0.5 mg/dL (0.2-1.2); Calc. Creatinine Clearance 28 mL/min (70-130); Calcium 7.5 mg/dL (7.8-10.44); Carbon Dioxide 17 mmol/L (23-31); Chloride 113 mmol/L (98-107); Globulin 2.4 g/dL (2.4-3.5); Glucose 91 mg/dL (83-110); Potassium 4.5 mmol/L (3.5-5.1); Protein, Total 5.5 g/dL (5.8-8.1); Sodium 139 mmol/L (136-145)
[2020-12-04] MEDS: Sodium Bicarbonate Tab 325 MG TAB PO SCH ×2 (09:25→20:38)
[2020-12-04] MEDS: Heparin 5,000 UNITS/ML VIAL SC SCH ×3 (09:26→20:38)
[2020-12-04] MEDS: Famotidine 20 MG TAB PO SCH (09:26)
[2020-12-04 14:27] LABS: Potassium, Urine Less than 10.0 mmol/L; Sodium, Urine 50 mmol/L (Not Available)
[2020-12-04] MEDS: Dextrose 5 % And 0.9 % NaCl 1,000 ML IV SCH (17:23)
[2020-12-05] MEDS: Dextrose 5 % And 0.9 % NaCl 1,000 ML IV SCH (04:27)
[2020-12-05 06:35] LABS: #Basophils 0.1 thou/uL (0.0-0.2); #Eosinphils 0.4 thou/uL (0.0-0.7); #Lymphocytes 2.4 thou/uL (1.20-3.40); #Monocytes 1.2 thou/uL (0.11-0.59); #Neutrophils 6.9 thou/uL (1.40-6.50); %Basophils 0.6 % (0.0-1.0); %Eosinophils 3.9 % (0.0-10.0); %Monocytes 11.1 % (0.0-10.0); %Neutrophils 62.4 % (42.0-75.0); Hemoglobin 9.7 g/dL (14.0-18.0); Mean Corpuscular HGB CONC 31.6 g/dL (32.0-36.0); Mean Corpuscular Volume 91.9 fL (78.0-98.0); Mean Platelet Volume 7.8 fL (7.4-10.4); Platelet Count 301 thou/uL (130-400); RBC Distribution Width 14.8 % (11.5-14.5); Red Blood Cell (RBC) Count 3.32 mill/uL (4.70-6.10)
[2020-12-05 06:55] LABS: Albumin 3.1 g/dL (3.4-4.8); Anion Gap 11 mmol/L (10-20); BUN (Urea Nitrogen) 45 mg/dL (8.4-25.7); BUN/Creatinine Ratio 29.61; Calc. Creatinine Clearance 53 mL/min (70-130); Calcium 7.1 mg/dL (7.8-10.44); Carbon Dioxide 20 mmol/L (23-31); Chloride 112 mmol/L (98-107); Glucose 103 mg/dL (83-110); Phosphorus 2.7 mg/dL (2.3-4.7); Potassium 4.4 mmol/L (3.5-5.1); Sodium 139 mmol/L (136-145)
[2020-12-05] MEDS ORDERED: Famotidine 20 MG TAB PO SCH (09:00)
[2020-12-05] MEDS: Aspirin 81 mg Enteric Coated Tablet PO SCH (09:39)
[2020-12-05] MEDS: Sodium Bicarbonate Tab 325 MG TAB PO SCH ×2 (09:39→20:31)
[2020-12-05] MEDS: Metoprolol Tartrate 50 MG TAB PO SCH ×2 (09:39→20:31)
[2020-12-05] MEDS: Thiamine 100 MG TAB PO SCH (09:40)
[2020-12-05] MEDS: Folic Acid 1 MG TAB PO SCH (09:40)
[2020-12-05] MEDS: Heparin 5,000 UNITS/ML VIAL SC SCH ×3 (09:41→20:31)
[2020-12-05 15:26] LABS: ANA Symphony (Qualitative) Negative (Negative); ANA Symphony (Quantitative) 0.1 Ratio (< 0.7 Negative); EliA Vaculitis New Method **** NEW METHOD ****; Glomerular Basemt Membrane Ab Less than 1.9 EliAU/mL (<7 Negative); dsDNA IgG Antibody Less than 0.5 IU/mL (<10 Negative)
[2020-12-05] MEDS ORDERED: Atorvastatin Calcium 40 MG TAB PO SCH (21:00)
[2020-12-06] MEDS: Sodium Bicarbonate Tab 325 MG TAB PO SCH (08:23)
[2020-12-06] MEDS: Metoprolol Tartrate 50 MG TAB PO SCH (08:23)
[2020-12-06] MEDS: Heparin 5,000 UNITS/ML VIAL SC SCH ×2 (08:23→15:22)
[2020-12-06] MEDS: Thiamine 100 MG TAB PO SCH (08:23)
[2020-12-06] MEDS: Aspirin 81 mg Enteric Coated Tablet PO SCH (08:23)
[2020-12-06] MEDS: Folic Acid 1 MG TAB PO SCH (08:23)
[2020-12-06 08:48] LABS: Albumin 3.1 g/dL (3.4-4.8); Anion Gap 11 mmol/L (10-20); BUN (Urea Nitrogen) 32 mg/dL (8.4-25.7); BUN/Creatinine Ratio 23.02; Calc. Creatinine Clearance 58 mL/min (70-130); Calcium 7.4 mg/dL (7.8-10.44); Carbon Dioxide 20 mmol/L (23-31); Chloride 111 mmol/L (98-107); Glucose 98 mg/dL (83-110); Sodium 138 mmol/L (136-145)
[2020-12-06 15:51] VITALS: BP 146/77; TEMP 98.3
[2020-12-07 14:40] LABS: Cytoplasmic (C-ANCA) <1:20 titer (Neg:<1:20); Myeloperoxidase AutoAbs <9.0 U/mL (0.0-9.0); Perinuclear (P-ANCA) <1:20 titer (Neg:<1:20); Proteinase-3 AutoAbs Less than 3.5 U/mL (0.0-3.5)
== END 2020-12-06 17:14 | disposition home health service (06) | DRG 682 ==
LOC: CCU 22:18 → 2NO 12-03 19:32 → T4-A 12-04 16:54
PROVIDERS: ADMIT Student in an Organized Health Care Education/Training Program; ATTEND Internal Medicine
PROC: HZ2ZZZZ Detoxification Services for Substance Abuse Treatment (ICD-10-PCS; principal; 2020-12-05)
DX: N17.9 Acute kidney failure, unspecified (principal); G93.41 Metabolic encephalopathy; E87.2 Acidosis; E72.20 Disorder of urea cycle metabolism, unspecified; N39.0 Urinary tract infection, site not specified; I12.9 Hypertensive chronic kidney disease with stage 1 through stage 4 chronic kidney disease, or unspecified chronic kidney disease; N40.0 Benign prostatic hyperplasia without lower urinary tract symptoms; E86.0 Dehydration; F10.10 Alcohol abuse, uncomplicated; I73.9 Peripheral vascular disease, unspecified; D63.1 Anemia in chronic kidney disease; N18.30 Chronic kidney disease, stage 3 unspecified; E87.5 Hyperkalemia; R53.81 Other malaise; E83.51 Hypocalcemia; Z79.82 Long term (current) use of aspirin; Z79.899 Other long term (current) drug therapy; Z71.41 Alcohol abuse counseling and surveillance of alcoholic; Z72.0 Tobacco use
CPT/HCPCS: 36415; 36416; 74176; 80053; 80069; 80074; 80307; 81001; 81003; 81015; 82140; 82330; 82436; 82533; 82570; 83516; 83520; 83605; 83690; 84133; 84156; 84300; 84484; 85025; 85049; 85300; 85362; 85379; 85384; 85610; 85730; 86038; 86060; 86225; 86256; 87040; 87086; 87149; 90935; 93005; G0257; J0692; J1644; J1815; J2001; J3411; J3490; J7070; J7611; U0002

== ENCOUNTER 2024-04-01 17:57 | Emergency (ER) | payer MEDICARE, MEDICAID ==
[~2024-04-01 17:57] MED LIST: Iopamidol-370 76% 500 ML MDV (1 ML CHARGE) ONE
[2024-04-01 18:44] LABS: #Basophils 0.04 10x3/uL (0.0-0.2); %Basophils 0.4 % (0.0-1.0); %Eosinophils 2.7 % (0.0-10.0); %Lymphocytes 26.4 % (21.0-51.0); %Monocytes 8.9 % (0.0-10.0); %Neutrophils 61.1 % (42.0-75.0); Hematocrit 34.6 % (42.0-52.0); Hemoglobin 11.3 g/dL (14.0-18.0); Mean Corpuscular HGB CONC 32.7 g/dL (32.0-36.0); Mean Corpuscular Hemoglobin 31.8 pg (27.0-31.0); Mean Corpuscular Volume 97.5 fL (78.0-98.0); Mean Platelet Volume 9.4 fL (7.4-10.4); Platelet Count 213 10x3/uL (130-400); Red Blood Cell (RBC) Count 3.55 mill/uL (4.70-6.10)
[2024-04-01 19:02] LABS: Acetaminophen Less than 10 mcg/mL (Less than 10); Alcohol 34.9 mg/dL (Less than 10); Magnesium 1.8 mg/dL (1.6-2.6); Salicylate Less than 8.0 mg/dL (Less than 8.0)
[2024-04-01 19:03] LABS: ALT (SGPT) 40 U/L (8-55); AST (SGOT) 77 U/L (5-34); Albumin 3.3 g/dL (3.4-4.8); Alkaline Phosphatase 111 U/L (40-110); Anion Gap 16 mmol/L (10-20); BUN (Urea Nitrogen) 12 mg/dL (8.4-25.7); Bilirubin, Total 0.3 mg/dL (0.2-1.2); Calc. Creatinine Clearance 0 mL/min (70-130); Calcium 8.5 mg/dL (7.8-10.44); Carbon Dioxide 19 mmol/L (23-31); Chloride 107 mmol/L (98-107); Estimated GFR 69; Globulin 3.1 g/dL (2.4-3.5); Glucose 102 mg/dL (83-110); Lipase 58 U/L (8-78); Protein, Total 6.4 g/dL (5.8-8.1); Sodium 137 mmol/L (136-145)
[2024-04-01 20:28] LABS: Bacteria/HPF None Seen HPF (None Seen); Bilirubin Negative (Negative); Blood, Urine Negative (Negative); CAUTI Indications for Culture Alt mental st,lethar; Clarity Clear (Clear); Glucose, Urine (Dipstick) Normal (Negative); Ketone, Urine Negative (Negative); Leukocyte 500 Leu/uL (Negative); Nitrite Negative (Negative); Protein, Urine (Dipstick) 200 mg/dL (Neg-Trace); Specific Gravity, Urine 1.014 (1.002-1.036); Squamous Epithelial 0-3 HPF (0-3); Urobilinogen Normal mg/dL (Less than 2); WBC/HPF 21-50 HPF (0-3); pH, Urine 6.5 (5.0-9.0)
[2024-04-01 20:30] LABS: Urine Culture Reflex Yes Yes
== END 2024-04-01 21:15 | disposition home or self-care (01) ==
LOC: ERS 17:57
DX: K43.9 Ventral hernia without obstruction or gangrene (principal); N39.0 Urinary tract infection, site not specified; F10.10 Alcohol abuse, uncomplicated; R10.84 Generalized abdominal pain; I10 Essential (primary) hypertension; F17.210 Nicotine dependence, cigarettes, uncomplicated
CPT/HCPCS: 74177; 80053; 80307; 81001; 83690; 83735; 85025; 87086; 93005; 94760; 99284; Q9967; 36415